=== PATIENT | female | born 1955 | race Caucasian/White ===

== ENCOUNTER → 2017-07-14 | Outpatient (CLI) | payer OTHER ==
[~2017-07-14] MED LIST: ASPI-1471 PO; ASPI-757 PO; CELE-1 PO; DIA5 PO; HYDR-2966 PO; HYDR-4308 PO; LEVO88TA45 PO; LOSA100T67 PO; MECL25TA9 PO; SIMV-54 PO; SPIR25TA78 PO
--- NOTE | 2017-07-14 17:04 | EKG ---
FACILITY: [facility] - [place], [place] PATIENT NAME: JUANA BARRON : [id number] MR: [id number] V: [id number] EXAM DATE: ORDERING PHYSICIAN: STEPHANIE PATE TECHNOLOGIST: Test Reason : Blood Pressure : / mmHG Vent. Rate : 077 BPM Atrial Rate : 077 BPM P-R Int : 144 ms QRS Dur : 092 ms QT Int : 390 ms P-R-T Axes : 031 -24 025 degrees QTc Int : 441 ms Normal sinus rhythm Normal ECG When compared with ECG of 24-SEP-2016 16:13, No significant change was found Confirmed by LEO NORMAN ([id number]) on 07/15/2017 2:00:23 AM Referred By: Confirmed By:LEO NORMAN
== END ==
LOC: LAB 16:44
PROVIDERS: ATTEND Obstetrics & Gynecology Gynecologic Oncology
DX: C54.1 Malignant neoplasm of endometrium (principal)
CPT/HCPCS: 36415; 82040; 82247; 82248; 82310; 82374; 82435; 82565; 82947; 84075; 84132; 84155; 84295; 84450; 84460; 84520; 85027; 93005

== ENCOUNTER 2017-08-27 00:43 | Day surgery (SDC) | payer OTHER ==
[~2017-08-27] VITALS: Ht 160 cm; Wt 102.5 kg
[~2017-08-27 00:43] MED LIST changes: +MECO10002 SL
[2017-08-27] MEDS ORDERED: LIDOCAINE/SOD BICARB 8.4% SYR ID ONE (11:45)
[2017-08-27] MEDS ORDERED: VANCOMYCIN 1 GM ADDVIAL 1 GM in NS(*) 0.9% 250 ML ADDVAN BAG 250 ML IVPB ONE (11:45)
[2017-08-27] MEDS ORDERED: FAMOTIDINE 20 MG TAB PO ONE (11:45)
[2017-08-27] MEDS ORDERED: NORMOSOL R SOLN(*) 1000 ML BAG 1,000 ML IV PRN (11:45)
[2017-08-27] MEDS ORDERED: MIDAZOLAM 2 MG/2 ML VIAL IVP ONE (11:45)
[2017-08-27 13:17] VITALS: BP 151/74
[2017-08-27] MEDS ORDERED: HEPARIN SOD LCK FLSH 100 UN/ML ONE ×2 (13:37→14:05)
[2017-08-27] MEDS ORDERED: ROPIVACAINE 0.5% 20 ML VIAL ONE (13:38)
[2017-08-27] MEDS ORDERED: NS(*) 0.9% 10 ML VIAL 20 ML ONE (13:38)
[2017-08-27] MEDS ORDERED: SUCCINYLCHOL CHL 200MG/10ML VL ONE (14:18)
[2017-08-27] MEDS ORDERED: LIDOCAINE MPF 1% 5 ML VIAL ONE (14:18)
[2017-08-27] MEDS ORDERED: PROPOFOL EMUL(*) 10MG/ML 20 ML 40 ML ONE (14:18)
[2017-08-27] MEDS ORDERED: ONDANSETRON 4 MG/2 ML VIAL ONE (14:18)
[2017-08-27] MEDS ORDERED: DEXAMETHASONE SOD PHOS 10MG/ML ONE (14:18)
[2017-08-27] MEDS ORDERED: OXYC-854 PO (15:31)
--- NOTE | 2017-08-27 15:34 | Short(Outpt) Discharge Summary ---
Discharge Summary Reason for Hosp/Final Diag: (1) Endometrial cancer, FIGO stage IIIC Status: Chronic Hospital Course & Plan: Right IJ Power Port placement completed without problems. Departure Discharge to: Home, Self Care Discharge Instructions Home Meds Active Scripts Oxycodone Hcl/Acet 5/325 Mg (ENDOCET 5-325 TABLET) 1 Each Tablet, 1 TAB PO Q4H Y for PAIN, #20 TAB 0 Refills Prov:ANAHY GENTILE MD 08/27/17 Reported Medications Mecobalamin (B-12) 1,000 Mcg Tab.rapdis, 1000 MCG SL DIRECTED 08/11/17 Spironolactone (SPIRONOLACTONE) 25 Mg Tablet, 25 MG PO DAILY, TAB 08/11/17 Aspirin (ASPIR 81) 81 Mg Tablet.dr, 81 MG PO QDAY, TAB 09/24/16 Losartan Potassium (LOSARTAN POTASSIUM) 100 Mg Tablet, 100 MG PO QDAY 07/08/16 Levothyroxine Sodium (LEVOTHYROXINE SODIUM) 88 Mcg Tablet, 88 MCG PO QDAY 07/08/16 Simvastatin (SIMVASTATIN) 40 Mg Tablet, 40 MG PO HS, TAB 07/08/16 Diet: Regular Activity: As Tolerated Special Instructions: You may leave the incisions open to air but leave the steristrips in place until they fall off on their own. You may start showering starting on 08/29/17, but do not immerse the incisions for 2 weeks. There is a dissolvable suture in your right neck. It SHOULD fall out in the next 2 weeks but if it doesn't try gently pulling on it. If it doesn't come out on its own or with gentle tugging then it can be removed in the cancer center or you can call my office and we can remove it there. ANAHY GENTILE MD Aug 27, 2017 15:34
--- NOTE | 2017-08-27 15:39 | Post Operative Progress Note ---
Post Operative Progress Note Date: Aug 27, 2017 Time: 15:34 Surgeon: Wanda Dictation number: [id number] Anesthesia: GETA by Dr. Valentin Pre-Op Diagnosis: Endometrial cancer Post-Op Diagnosis: FARZAD Findings: None Procedure(s): Right IJ Power Port placement Specimen Removed:(May be N/A): None Complications: None Fluids: See anesthesia record Estimated Blood Loss: Minimal Date OP Note Dictated: Aug 27, 2017 Time OP Note Dictated: 15:35 ANAHY GENTILE MD Aug 27, 2017 15:39
[2017-08-27 15:50] VITALS: BP 138/71
[2017-08-27 16:00] VITALS: BP 130/88
[2017-08-27 16:15] VITALS: BP 122/55
[2017-08-27 16:23] VITALS: BP 158/73
--- NOTE | 2017-08-27 17:29 | RADIOLOGY IMAGING REPORT ---
[place] [facility] [place] NAME: Didi Knowles : 1955 MR: [id number] V: [id number] EXAM DATE: ORDERING PHYSICIAN: ANAHY GENTILE TECHNOLOGIST: [place] [facility] [place] Patient: Didi Knowles : 1955 Visit/Account:[id number] Date of Sevice: 08/27/2017 Study: CHEST SINGLE AP Indication: Port placement Comparison study: August 26, 2017 Findings: Portable chest demonstrates presence of an implanted port within the right chest. There is no evidence of pneumothorax. The tip of the catheter overlies the SVC. There or changes of discoid atelectasis present within the right lung. This is worsened as compared t o the previous study, however the patient has not taken as full inspiration as on the previous study. There is no evidence of acute infiltrate. There is no evidence of pleural effusion. IMPRESSION: Status post port placement. Discoid atelectasis present within the left lung as described . Report Dictated By: Star Armijo at 08/27/2017 5:24 PM Report E-Signed By: Star Armijo at 08/27/2017 5:25 PM WSN:[id number]
--- NOTE | 2017-08-27 23:55 | RADIOLOGY IMAGING REPORT ---
[place] [facility] [place]: Didi Knowles : 1955 MR: [id number] V: [id number] EXAM DATE: ORDERING PHYSICIAN: ANAHY GENTILE TECHNOLOGIST: Location: [facility] Patient: Didi Knowles : 1955 Visit/Account:[id number] Date of Sevice: 08/27/2017 Fluoroscopy in OR: Indication: Chemotherapy port insertion. Technique 2 spot films were submitted. Fluoroscopy time was 35.8 seconds. Comparison: None. Findings: The spot images demonstrate a port catheter in the upper right chest wall. The tip of the c atheter is at the level of the SVC. An ET tube is also present. The upper right lung field appears un remarkable, as visualized. Impression: As above. Report Dictated By: Curt Castillo MD at 08/27/2017 11:49 PM Report E-Signed By: Curt Castillo MD at 08/27/2017 11:52 PM WSN:[id number]
[2017-08-28] MEDS ORDERED: LIDO30CR3 TP ×3 (09:22→10:12)
[2017-08-28] MEDS ORDERED: PROC10TA4 PO ×3 (09:22→10:12)
[2017-08-28] MEDS ORDERED: LORA-1455 PO ×2 (09:22→10:12)
[2017-08-28] MEDS ORDERED: ONDA4TAB PO ×3 (09:22→10:12)
[2017-08-28] MEDS ORDERED: OXYC-854 PO (10:10)
--- NOTE | 2017-08-28 14:55 | OPERATIVE REPORT 1 ---
EVENT DATE: August 27, 2017 SURGEON: Damir Muñoz MD ANESTHESIOLOGIST: Иван Valentin MD ANESTHESIA: General endotracheal anesthesia. PREOPERATIVE DIAGNOSIS Endometrial cancer. POSTOPERATIVE DIAGNOSIS Endometrial cancer. PROCEDURE PERFORMED Right internal jugular vein PowerPort placement. COMPLICATIONS None. CONDITION Stable. BLOOD LOSS Minimal. INDICATIONS This is a 61-year-old female who referred to me from the Cancer Center with a new diagnosis of endometrial cancer, for which they are wanting to start chemotherapy. They are requiring a chemotherapy port to facilitate this. DESCRIPTION OF PROCEDURE The patient was brought to the operating room and placed supine on the operating table. General endotracheal anesthesia was administered, and her right neck, shoulder, and chest were prepped and draped in a sterile fashion. Timeout was completed. With her in Trendelenburg, I used the ultrasound to identify the right internal jugular vein. I was able to access this with the access needle and thread the wire through the needle. I confirmed the position of the wire in the SVC with the C-arm fluoroscope. I then marked the skin and anesthetized the skin with 0.5% ropivacaine plain both in the neck and then in the right infraclavicular skin. I made a transverse incision in the infraclavicular skin and dissected through the dermis and subcutaneous fat. I created a pocket caudad to the incision. I made sure the pocket was hemostatic. I then made a small stab incision where the wire entered the right neck. I then used the tunneler and pulled the catheter from the pocket up to the stab incision in the neck. With the patient in Trendelenburg, I threaded a dilator and sheath over the wire and removed the dilator and wire. I then threaded the catheter through the sheath and removed the sheath. I then used the C-arm fluoroscope to position the tip of the catheter in the SVC just above the right atrium and then cut it to length. I installed it onto the port and locked into place with a locking cuff. I then sutured the port to the underlying muscle fascia with 3-0 nylon at the corners. I then aspirated blood from the port and catheter and then flushed it with 10 mL of normal saline. It aspirated and flushed with no problems. I then flushed it with 5 mL of 100 units/mL of heparinized saline. I then took some more C-arm images to confirm good position of the port and catheter and that there were no kinks or twists in the catheter, and there was none. It looked good. I then closed the skin in the infraclavicular area with interrupted 3-0 Vicryl deep dermal sutures and 4-0 Monocryl running subcuticular suture. The stab incision in the right neck was closed with a single 3-0 chromic suture. The skin was cleaned and dried, and Steri-Strips were applied. The patient was awakened, extubated in the operating room, and transported to the recovery room in stable condition having tolerated the procedure without any apparent problems. PEMA
== END 2017-08-27 15:50 | disposition home or self-care (01) ==
LOC: OR 00:43
PROVIDERS: ATTEND Surgery
DX: C54.1 Malignant neoplasm of endometrium (principal)
CPT/HCPCS: 36561; 71045; 77001; J0330; J1100; J1642; J2001; J2250; J2405; J2704; J2795; J3370; J7050; C1788

== ENCOUNTER → 2017-08-28 | Outpatient (CLI) | payer OTHER ==
[~2017-08-28] MED LIST changes: +LIDO30CR3 TP; +LORA-1455 PO; +ONDA4TAB PO; +OXYC-854 PO; +PEGFILGRASTIM 6 MG/0.6 ML KIT SUBQ ONE; +PROC10TA4 PO
== END ==
LOC: SPU 14:17
PROVIDERS: ATTEND Internal Medicine Medical Oncology
DX: C54.1 Malignant neoplasm of endometrium (principal)
CPT/HCPCS: 96372; J2505

== ENCOUNTER 2017-09-08 14:22 | Outpatient (RCR) | payer OTHER ==
--- NOTE | 2017-08-26 16:15 | RADIOLOGY IMAGING REPORT ---
FACILITY: [facility] PATIENT NAME: Didi Knowles : 1955 MR: [id number] V: [id number] EXAM DATE: ORDERING PHYSICIAN: KHUSHBOO JACQUES TECHNOLOGIST: Location: [facility] - [place] Patient: Didi Knowles : 1955 Visit/Account:[id number] Date of Sevice: 08/26/2017 Exam type: CHEST PA AND LAT History: Uterine cancer Comparison: 07/10/2006. Findings: There is elevation the right hemidiaphragm which is unchanged from prior exam. Minimal atelectasis a t the left lung base is noted similar to recent CT chest 09/24/2016. There is no focal infiltrate, pl eural effusion or pneumothorax. No evidence for pulmonary metastatic disease. Heart size is upper limits of normal. The osseous structures demonstrate a scoliosis with degenerative changes. IMPRESSION: 1. No evidence for acute cardiopulmonary disease. 2. Stable atelectasis or scarring at left lung base. 3. No evidence for metastatic disease to the chest. Report Dictated By: Ulysses Espinoza MD at 08/26/2017 4:08 PM Report E-Signed By: Ulysses Espinoza MD at 08/26/2017 4:10 PM WSN:[id number]
--- NOTE | 2017-08-26 16:57 | RADIOLOGY IMAGING REPORT ---
FACILITY: [facility] PATIENT NAME: Didi Knowles : 1955 MR: [id number] V: [id number] EXAM DATE: ORDERING PHYSICIAN: KHUSHBOO JACQUES TECHNOLOGIST: Location: [facility] - [place] Patient: Didi Knowles : 1955 Visit/Account:[id number] Date of Sevice: 08/26/2017 ABDOMEN/PELVIS W/O CONTRAST HISTORY: Staging uterine cancer TECHNIQUE: CT abdomen and pelvis without intravenous contrast. Contiguous axial images of the abdom en and pelvis was performed from the lung bases to the symphysis pubis. One of the following dose optimization techniques was utilized in the performance of this exam: Autom ated exposure control; adjustment of the mA and/or kV according to the patient's size; or use of an i terative reconstruction technique. Specific details can be referenced in the facility's radiology C T exam operational policy. CONTRAST: None. COMPARISON: None. FINDINGS: Visualized lung bases: There is elevation right hemidiaphragm which is chronic. Hepatobiliary: Negative. Spleen: Negative. Adrenals: Negative. Kidneys/: The uterus appears to be absent. There is no evidence for residual or metastatic diseas e in the abdomen and pelvis within the limits of a noncontrasted study. Bubble of air is noted in th e vaginal fornix. Pancreas: Negative. GI: There is colonic diverticulosis but no CT evidence for diverticulitis. The appendix is normal. Vessels/spaces/nodes: Minimal atherosclerotic calcifications noted. Bones/soft tissues: Negative. IMPRESSION: 1. Uterus is absent. There is no evidence for residual or metastatic disease in the abdomen and pel vis within the limits of a noncontrasted study. 2. Other chronic findings are described above. Report Dictated By: Ulysses Espinoza MD at 08/26/2017 4:42 PM Report E-Signed By: Ulysses Espinoza MD at 08/26/2017 4:53 PM WSN:[id number]
[~2017-09-08 14:22] MED LIST changes: -PEGFILGRASTIM 6 MG/0.6 ML KIT SUBQ ONE
[2017-09-08] MEDS ORDERED: DIPH-740 PO (16:56)
[2017-09-08] MEDS ORDERED: CETI-176 PO (16:56)
[2017-09-08] MEDS ORDERED: RANI150C17 PO (16:56)
[2017-09-08] MEDS ORDERED: PRED20TA6 PO (16:57)
== END 2017-09-16 11:25 | disposition home or self-care (01) ==
LOC: RAON 14:22
PROVIDERS: ATTEND Radiology Radiation Oncology
DX: C54.1 Malignant neoplasm of endometrium (principal); E78.00 Pure hypercholesterolemia, unspecified; I10 Essential (primary) hypertension; E07.9 Disorder of thyroid, unspecified; Z79.899 Other long term (current) drug therapy; K57.30 Diverticulosis of large intestine without perforation or abscess without bleeding; R91.8 Other nonspecific abnormal finding of lung field
CPT/HCPCS: 71046; 74176; 99202; 99212

== ENCOUNTER → 2017-09-18 | Outpatient (CLI) | payer OTHER ==
[~2017-09-18] MED LIST changes: +CETI-176 PO; +DIPH-740 PO; +PEGFILGRASTIM 6 MG/0.6 ML SYR SUBQ ONE; +PRED20TA6 PO; +RANI150C17 PO
== END ==
LOC: SPU 07:48
PROVIDERS: ATTEND Internal Medicine Medical Oncology
DX: C54.1 Malignant neoplasm of endometrium (principal)
CPT/HCPCS: 96372; J2505

== ENCOUNTER → 2017-10-09 | Outpatient (CLI) | payer OTHER ==
[~2017-10-09] MED LIST changes: +METF-410 PO
[2017-10-09 15:45] VITALS: BP 160/83
== END ==
LOC: SPU 09:06
PROVIDERS: ATTEND Internal Medicine Medical Oncology
DX: C54.1 Malignant neoplasm of endometrium (principal)
CPT/HCPCS: 96372; J2505

== ENCOUNTER → 2017-11-03 | Outpatient (CLI) | payer OTHER | LOC: SPU 07:32 | PROVIDERS: ATTEND Internal Medicine Medical Oncology | DX: C54.1 Malignant neoplasm of endometrium (principal) | CPT/HCPCS: 96372; J2505 ==

== ENCOUNTER → 2017-11-09 | Outpatient (RCR) | payer OTHER ==
[2017-08-12 09:54] VITALS: BP 154/86
--- NOTE | 2017-08-12 17:55 | ONCOLOGY CONSULTATION ---
EVENT DATE: August 12, 2017 REFERRING PROVIDER Angel Garcia MD, Obstetrics and Gynecology REASON FOR CONSULTATION Endometrial cancer. CHIEF COMPLAINT The patient feels well today. HISTORY OF PRESENT ILLNESS Ms. Knowles is a delightful 61-year-old female with a history of hypertension, hypercholesterolemia, and hypothyroidism. She recently presented with uterine bleeding. She was seen in consultation by Dr. Simpson at [facility] in [place]. She underwent robotic total hysterectomy, bilateral salpingo- oophorectomy and omentectomy with staging on July 21, 2017. The patient reports that this surgery went remarkably well. She feels that she has recovered nicely. She recently returned to work for a few days, and this went fairly well. She is here today with her loved ones. She recently also had met with Dr. Eason in Radiation Oncology. The pathology report from her recent surgery on July 21 reveals an endometrioid adenocarcinoma with squamous differentiation, grade 2, deeply invasive in the myometrium, and with lymphatic embolization. The cervix also contained endometrioid adenocarcinoma involving the cervical stroma. The left and right ovaries as well as left and right fallopian tubes were unremarkable. Pelvic sentinel lymph node on the right was negative. Pelvic sentinel lymph node on the left revealed metastatic carcinoma. It has been recommended that the patient consider adjuvant chemotherapy and radiation. Again, she has visited with Dr. Eason to discuss radiation plans, and she is here to discuss chemotherapy with me today. REVIEW OF SYSTEMS Otherwise negative, and all systems were reviewed. PAST MEDICAL HISTORY 1. Hypertension. 2. Hypercholesterolemia. 3. Hypothyroidism. PAST SURGICAL HISTORY 1. As above. 2. Status post a surgical procedure on her hand. 3. Status post tonsillectomy. 4. Status post knee surgery last year. CURRENT MEDICATIONS 1. Baby aspirin once daily. 2. Vitamin B12 daily. 3. Levothyroxine daily. 4. Losartan daily. 5. Simvastatin daily. 6. Spironolactone daily. ALLERGIES 1. CELEBREX which causes a rash. 2. PENICILLINS which cause hives. SOCIAL HISTORY Patient is a nonsmoker, and there is no history of illicit drug use or alcohol abuse. 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 FAMILY HISTORY Otherwise unremarkable. VITAL SIGNS Temperature is 97.5, blood pressure 154/86, heart rate is 88, respirations 16, oxygen saturation is 90% on room air. Weight is 104.1 kg. PHYSICAL EXAMINATION GENERAL: Patient is alert and oriented times three in no apparent distress, sitting in the exam room chair. She is interactive and quite pleasant and in good spirits. HEENT: Exam reveals anicteric sclerae. No significant oropharyngeal lesions. NEUROLOGIC: Examination is nonfocal and her gait is normal. EXTREMITIES: Exam reveals no edema, clubbing or cyanosis. SKIN: Exam reveals no concerning rash or lesion. The rest of the physical exam is deferred for extensive discussion. LABORATORY STUDIES Reviewed per the [facility] record. IMAGING AND PATHOLOGY Please see history of present illness. ASSESSMENT AND PLAN 1. 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 I had a lengthy visit with Gricelda and her visitors today. Symptomatically, she is doing remarkably well. We spent time today reviewing her oncology history, which is noted above. Her performance status is excellent. We moved on to discuss the results of her surgical pathology. She has seen Dr. Eason in consultation, and I have reviewed her situation with Dr. Eason this morning. She is going to travel to [place] to have a CT PET scan performed. We will await these results. The tentative plan moving forward will be for her to receive six cycles of adjuvant carboplatin and paclitaxel. We spent a great deal of time today discussing the characteristics of these medicines, the toxicity of the regimen itself, and particular risks. We also discussed the rational for its use. After her six cycles of carboplatin and paclitaxel, the plan will be for her to undergo external beam radiation, likely with weekly low dose cisplatin. We also discussed cisplatin in detail. It is likely that the patient would also undergo subsequent vaginal brachytherapy in [place] with Dr. Eason. The patient does seem to be quite well informed at this time, and she has a tremendous social support network. We spent some time discussing how her work could potentially impacted by our treatment plan. She will be scheduled for a port placement with Dr. Muñoz here in [place], and we will be back in touch with her after her CT PET scan to review the results. She will be scheduled for a chemotherapy education session. I will also enter a referral for physical therapy, which will be particularly important for her as she initiates adjuvant treatment. The patient and her loved ones had multiple insightful and appropriate questions for me today, and I believe I answered all of these questions to their satisfaction. I will plan to see her back in the next month here in my [facility] clinic. Thank you very much for allowing me to take part in the care of this delightful patient. Please do not hesitate to call with any questions or concerns. I spent a total of 60 minutes of [id number] time with the patient and her visitors today. Fifty-five minutes of this was spent in direct counseling and coordination of care. PEMA
[2017-08-28 08:20] LABS: PLATELET COUNT, AUTOMATED 199 K/uL (150-450)
--- NOTE | 2017-08-28 09:24 | ONC Progress Note - NP.Halsey ---
Patient History Date of Service Aug 28, 2017 Reason For Visit/HPI Patient is seen with her family today for education with chemotherapy for her endometrial cancer. Patient has consult it with Dr. Marshall Lange and Krysta Eason in the [facility] and previously was seen by Angel Garcia MD, Obstetrics and Gynecology for management of care. Patient had a port placed yesterday and denies any pain or swelling over the area. Port was accessed without difficulty area patient will start paclitaxel and carboplatin cycle 1 today. Questions were answered and a consent was signed. Problem List (1) Endometrial cancer, FIGO stage IIIC Oncology History 1. 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 Plan of care includes lesion of six cycles of adjuvant carboplatin and paclitaxel. This will be followed by external beam radiation therapy with weekly low dose cisplatin. It is likely that the patient would also undergo subsequent vaginal brachytherapy in [place] with Dr. Eason. Medical History Family History: FH: diabetes mellitus FATHER BROTHER OR SISTER FH: heart disease FATHER BROTHER OR SISTER Psychosocial History Social History Patient is single. 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 Smoking History: No Smoking Status: Never Smoker Exposure to Second Hand Smoke?: No Medications and Allergies Active Scripts Lidocaine/Prilocaine (LIDOCAINE-PRILOCAINE CREAM) 30 Gm Cream..g., 30 GM TP PRN , #1 G 1 Refill Prov:DOMINGO VARGASP-BC, ONC 08/28/17 Prochlorperazine Maleate (Compazine) 10 Mg Tablet, 10 MG PO Q6H, #30 TAB Prov:DOMINGO VARGASP-BC, ONC 08/28/17 Ondansetron (ZOFRAN ODT) 4 Mg Tab.rapdis, 8 MG PO Q8H, #30 TAB.SUMMER 1 Refill Prov:DOMINGO VARGASP-BC, ONC 08/28/17 Oxycodone Hcl/Acet 5/325 Mg (ENDOCET 5-325 TABLET) 1 Each Tablet, 1 TAB PO Q4H Y for PAIN, #20 TAB 0 Refills Prov:ANAHY GENTILE MD 08/27/17 Reported Medications Mecobalamin (B-12) 1,000 Mcg Tab.rapdis, 1000 MCG SL DIRECTED 08/11/17 Spironolactone (SPIRONOLACTONE) 25 Mg Tablet, 25 MG PO DAILY, TAB 08/11/17 Aspirin (ASPIR 81) 81 Mg Tablet.dr, 81 MG PO QDAY, TAB 09/24/16 Losartan Potassium (LOSARTAN POTASSIUM) 100 Mg Tablet, 100 MG PO QDAY 07/08/16 Levothyroxine Sodium (LEVOTHYROXINE SODIUM) 88 Mcg Tablet, 88 MCG PO QDAY 07/08/16 Simvastatin (SIMVASTATIN) 40 Mg Tablet, 40 MG PO HS, TAB 07/08/16 Allergies: Coded Allergies: Penicillins (Verified Allergy, Intermediate, HIVES, 07/08/16) celecoxib (Verified Allergy, Unknown, HIVES, 09/24/16) Review of System/Physical Exam Review of Systems All Systems Reviewed/Normal: Yes Physical Exam Vital Signs Temperature: 97.5 Pulse: 88 BP Systolic: 154 BP Diastolic: 86 Respiratory Rate: 16 O2 SAT: 90 O2 Delivery: Height (inches) 63.00 Weight lb: 227 Weight oz: Weight Kg (Bebo): Pain: 0 ECOG Score: 0 General: Stable, Well Developed, Well Nourished, Not In Acute Distress Psychiatric: Mood appears normal, Affect appears normal, Other (good support system) Chemo Education Chemotherapy Education: Patient is seen today for education regarding chemotherapy with paclitaxel and carboplatin followed by [facility] for her endometrial cancer. The treatment schedule and associated appointments were discussed and reviewed. A print out will be given to the patient. The intent for treatment is curative . Consent for treatment was completed prior to receiving treatment. Mechanism of action and associated side effects of chemotherapy and premedications were discussed. The patient is at increased risk for infection related to bone marrow suppression with chemotherapy. Signs and symptoms of infection were reviewed with recommendation of calling the clinic if fever, chills or a temperature of 100.5 or greater is experienced. Regular monitoring of blood work will be completed. The patient is at increased risk of nausea and vomiting related to chemotherapy. Home antiemetics were reviewed with a schedule of when to take them. Script (s) for Ativan, Zofran, Compazine, and EMLA cream were sent to [facility]. Increased bowel movements or diarrhea may occur. The use of Imodium was reviewed and encouraged to have on hand. Dehydration from decreased intake, nausea or diarrhea could also occur. Side effects of dehydration were reviewed and hydration will be given as needed. Self-care strategies to minimize any symptoms from treatment were taught and written material was given for further review at home. The strategies included : dietary modifications for nausea, diarrhea, fatigue and/or mouth sores, exercise and resting for fatigue, hydration for dehydration, and skin care for dry skin reactions. In addition, safety measures for IV chemotherapy to prevent teratogenic side effects to others was reviewed in detail to include good hand washing, double flushing, and what to do during sexual intercourse. Patient reports that she is not sexually active. The hospital phone number was given to the patient with instructions to ask for nurse practitioner if she has questions after hours or on the weekend. We did touch base on dietary and physical therapy needs. Patient will see the dietitian and physical therapist. In addition we reviewed a little bit of information regarding weekly cisplatin and daily radiation therapy which will be completed in the future followed by brachii therapy completed in [place] with Dr. Eason The above information will be reviewed with the patient and family members as needed. Diagnostic Studies Diagnostic Studies Laboratory Item Value Date Time White Blood Count 12.3 k/uL H 08/28/17 0810 Neutrophils (%) (Auto) 90.9 % H 08/28/17 0810 Lymphocytes (%) (Auto) 5.8 % L 08/28/17 0810 Monocytes (%) (Auto) 2.9 % L 08/28/17 0810 Eosinophils (%) (Auto) 0.0 % L 08/28/17 0810 Neutrophils # (Auto) 11.2 K/uL H 08/28/17 0810 Lymphocytes # (Auto) 0.7 K/uL L 08/28/17 0810 Random Glucose 143 mg/dl H 08/28/17 0810 Assessment and Plan Assessment & Plan 1. 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 Patient was scheduled to have a PET CT scan and follow with Dr. Eason, unfortunately her insurance denied this study. Patient will have a CT scan only. Education regarding paclitaxel and carboplatin was completed today. Consent was signed. Patient and family members verbalized understanding and felt that questions were answered to their satisfaction. [facility] include Ativan, Zofran, Compazine, and EMLA cream. Patient will complete 6 cycles given every 21 days followed by weekly cisplatin with concurrent therapy with radiation. This is likely to be followed by brachytherapy completed in [place]. 2. Elevated white cell count of 12.3 today. I will obtain a urine sample. Treatment will be completed today as scheduled as patient denies any fever or chills, body aches, cough or shortness of breath or any other sign of infection. She will be treated appropriately if there is an indication. I personally spent a total of 40 minutes. Of that 40 minutes was counseling/ coordination of patient's care. See my note above for details. DOMINGO VARGAS PROJECTS MANAGER-BC, ONC Aug 28, 2017 09:24
[2017-08-28 09:43] VITALS: BP 147/68
[2017-08-28] MEDS: diphenhydrAMINE 50 MG/ML VIAL IVP PRN (10:02)
[2017-08-28] MEDS: FAMOTIDINE 10 MG/ML SDV IV PRN (10:06)
[2017-08-28] MEDS: PALONOSETRON 0.25 MG/5 ML VIAL IVP PRN (10:09)
[2017-08-28] MEDS: DEXAMETHASONE SOD PHOS 10MG/ML IVP PRN (10:09)
[2017-08-28] MEDS: LIDOCAINE/SOD BICARB 8.4% SYR ID PRN (10:37)
[2017-08-28 11:11] VITALS: BP 123/72
[2017-08-28 11:18] VITALS: BP 126/65
[2017-08-28 11:46] VITALS: BP 128/69
[2017-08-28 12:52] VITALS: BP 108/48
[2017-09-04 08:58] VITALS: BP 119/60
[2017-09-04] MEDS: HEPARIN FLSH (PORT) 500 UN/5ML IVP PRN (09:15)
[2017-09-04 09:17] LABS: PLATELET COUNT, AUTOMATED 86 K/uL (150-450)
[2017-09-04] MEDS: NS(*) 0.9% 1000 ML BAG 1,000 ML IV PRN ×2 (14:00→15:00)
[2017-09-04] MEDS: FAMOTIDINE 10 MG/ML SDV IV PRN (14:00)
[2017-09-05 09:23] VITALS: BP 158/61
[2017-09-05] MEDS: NS(*) 0.9% 1000 ML BAG 1,000 ML IV PRN (09:25)
[2017-09-05] MEDS: HEPARIN FLSH (PORT) 500 UN/5ML IVP PRN (09:25)
[2017-09-07 08:28] VITALS: BP 147/90
[2017-09-07 08:51] LABS: PLATELET COUNT, AUTOMATED 104 K/uL (150-450)
--- NOTE | 2017-09-07 09:00 | ONC Progress Note - NP.Halsey ---
Patient History Date of Service Sep 07, 2017 Reason For Visit/HPI Patient is seen in the clinic today for evaluation of a rash that she developed on Thursday. Patient called the on-call nurse practitioner and was instructed to take Benadryl, Zyrtec, ranitidine and was started on prednisone 20 mg twice daily 5 days. Patient reports that the rash did not itch and she was not aware of it until seen herself in the near. He diffusely's scattered macule rash with erythema is over her entire body except for hands and face and feet. She denies any mouth sores, no ulcerations around the eyes, no fever or chills, no cough or congestion. She reports that the above medications have helped with symptom management because occasionally she does have some mild itching. She denies any changes in soap products and has not eaten any new foods. Patient did develop a slight reaction post initiation of paclitaxel on the day of infusion which required the drug to be stopped and then restarted slowly. Patient then had no further symptoms. The only symptom she had suggesting a reaction was flushing of the face and feeling warm. She was able to complete carboplatin without difficulty. Patient had labs drawn last Thursday and had an absolute neutrophil count around 100. She denied any fever or chills or any symptoms suggestive of an infection. She did have Neulasta. She is redrawn today for further evaluation. Problem List (1) Macular erythematous rash (2) Endometrial cancer, FIGO stage IIIC Oncology History 1. 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 Plan of care includes six cycles of adjuvant carboplatin and paclitaxel. This will be followed by external beam radiation therapy with weekly low dose cisplatin. It is likely that the patient would also undergo subsequent vaginal brachytherapy in [place] with Dr. Eason. Cycle 1 completed on 08/28/2017. Patient had flushing of the face during infusion with paclitaxel. 10 days posttreatment patient has erythematous rash. She developed significant neutropenia despite use of Neulasta. Medical History Family History: FH: diabetes mellitus FATHER BROTHER OR SISTER FH: heart disease FATHER BROTHER OR SISTER Psychosocial History Social History Patient is single. 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 Smoking History: No Smoking Status: Never Smoker Exposure to Second Hand Smoke?: No Medications and Allergies Active Scripts Lorazepam (ATIVAN) 0.5 Mg Tablet, 0.5 MG PO Q4-6H Y for NAUSEA for 30 Days, #30 TAB 1 Refill Prov:DOMINGO VARGAS [facility], ONC 08/28/17 Lidocaine/Prilocaine (LIDOCAINE-PRILOCAINE CREAM) 30 Gm Cream..g., 30 GM TP PRN , #1 G 1 Refill Prov:DOMINGO VARGAS [facility], ONC 08/28/17 Prochlorperazine Maleate (Compazine) 10 Mg Tablet, 10 MG PO Q6H, #30 TAB Prov:DOMINOG VARGAS [facility], ONC 08/28/17 Ondansetron (ZOFRAN ODT) 4 Mg Tab.rapdis, 8 MG PO Q8H, #30 TAB.SUMMER 1 Refill Prov:DOMINGO VARGAS [facility]-, ONC 08/28/17 Reported Medications Mecobalamin (B-12) 1,000 Mcg Tab.rapdis, 1000 MCG SL DIRECTED 08/11/17 Spironolactone (SPIRONOLACTONE) 25 Mg Tablet, 25 MG PO DAILY, TAB 08/11/17 Aspirin (ASPIR 81) 81 Mg Tablet.dr, 81 MG PO QDAY, TAB 09/24/16 Losartan Potassium (LOSARTAN POTASSIUM) 100 Mg Tablet, 100 MG PO QDAY 07/08/16 Levothyroxine Sodium (LEVOTHYROXINE SODIUM) 88 Mcg Tablet, 88 MCG PO QDAY 07/08/16 Simvastatin (SIMVASTATIN) 40 Mg Tablet, 40 MG PO HS, TAB 07/08/16 Allergies: Coded Allergies: Penicillins (Verified Allergy, Intermediate, HIVES, 07/08/16) celecoxib (Verified Allergy, Unknown, HIVES, 09/24/16) Review of System/Physical Exam Review of Systems All Systems Reviewed/Normal: Yes, Except as Noted Skin: Positive for Skin Rash (diffusely scattered rash over her entire body without evidence of mouth sores or rash on her face or hands or feet.) Physical Exam Vital Signs Temperature: 97.1 Pulse: 74 BP Systolic: 147 BP Diastolic: 90 Respiratory Rate: 16 O2 SAT: 90 O2 Delivery: Height (inches) 63.00 Weight lb: 226 Weight oz: Weight Kg (Bebo): Pain: 0 ECOG Score: 0 General: Stable, Well Developed, Well Nourished, Not In Acute Distress HEENT: No Trauma, No Conjunctivitis, No Icterus, No Mucositis, No Oral Thrush, No Sinus Tenderness Neck: Supple Lungs: Clear to Auscultation Heart: Regular Rate, Regular Rhythm, No Gallops Abdomen: Other (bowel sounds are active) Extremities: No Cyanosis, No Clubbing, No Edema Psychiatric: Mood appears normal, Affect appears normal Skin: Skin Rashes (diffusely scattered macule erythematous rash over entire body with the exception of head, hands and feet.) Diagnostic Studies Diagnostic Studies Laboratory Item Value Date Time White Blood Count 8.5 k/uL 09/07/17843 Hemoglobin 14.0 g/dL 09/07/17843 Hematocrit 40.9 % 09/07/17843 Platelet Count 104 K/uL L 09/07/17843 Neutrophils # (Auto) 7.1 K/uL 09/07/17843 Eosinophils (%) (Auto) 0.2 % L 09/07/17843 Lymphocytes # (Auto) 0.9 K/uL L 09/07/17843 Item Value Date Time Sodium Level 132 mmol/L L 09/07/17843 Chloride Level 97 mmol/L L 09/07/17843 Random Glucose 185 mg/dl H 09/07/17843 Blood Urea Nitrogen 17 mg/dl 09/07/17843 Creatinine 0.90 mg/dl 09/07/17843 Laboratory Tests 09/04/17 08:57 Laboratory Tests 08/28/17 09:28: Urine Color Yellow, Urine Clarity Slightly-cloudy, Urine pH 6.0, Urine Specific [place] 1.025, Urine Protein Negative, Urine Glucose (UA) Negative, Urine Ketones Negative, Urine Blood Negative, Urine Nitrite Negative, Urine Bilirubin Negative, Urine Urobilinogen Negative, Urine Leukocyte Esterase Negative, Urine RBC None, Urine WBC 2, Urine Squamous Epithelial Cells Many, Urine Bacteria Negative, Urine Mucus Few 09/04/17 08:57: White Blood Count 1.0, Red Blood Count 4.23, Hemoglobin 14.0, Hematocrit 40.4, Mean Corpuscular Volume 95.5, Mean Corpuscular Hemoglobin 33.0, Mean Corpuscular Hemoglobin Concent 34.5, Red Cell Distribution Width 12.9, Platelet Count 86, Mean Platelet Volume 10.3, Neutrophils (%) (Auto) , Lymphocytes (%) ( Auto) , Monocytes (%) (Auto) , Eosinophils (%) (Auto) , Basophils (%) (Auto) , Nucleated RBC Relative Count (auto) , Neutrophils # (Auto) , Lymphocytes # (Auto ) , Monocytes # (Auto) , Eosinophils # (Auto) , Basophils # (Auto) , Nucleated RBC Absolute Count (auto) , Neutrophils % (Manual) 15, Lymphocytes % (Manual) 63 , Atypical Lymphocytes % 11, Monocytes % (Manual) 3, Eosinophils % (Manual) 8, Basophils % (Manual) 0, Peripheral Blood Smear Yes, Sodium Level 132, Potassium Level 3.7, Chloride Level 94, Carbon Dioxide Level 25, Blood Urea Nitrogen 33, Creatinine 1.50, Glomerular Filtration Rate Calc 35.5, Random Glucose 145, Calcium Level 8.9, Total Bilirubin 0.8, Aspartate Amino Transf (AST/SGOT) 20, Alanine Aminotransferase (ALT/SGPT) 38, Alkaline Phosphatase 70, Total Protein 6.8, Albumin 3.9 Assessment and Plan Assessment & Plan 1. 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 Patient was scheduled to have a PET CT scan and follow with Dr. Eason, unfortunately her insurance denied this study. Patient will have a CT scan only. Education regarding paclitaxel and carboplatin was completed prior treatment. Consent was signed. She developed a slight reaction with paclitaxel infusion to include flushing of the face and warmth of the face. The infusion was held for 30 minutes and then restarted at a lower rate. Patient was able to complete without difficulty. Today patient reports approximately 10 days post infusion a diffusely Scattered erythematous macular rash with mild itching. Patient is currently on Benadryl, Zyrtec, ranitidine and prednisone 20 mg twice a day 5 days. Patient reports symptoms are improved with only mild itching. She was started on medications through the on-call nurse practitioner. Information will be reviewed with pharmacy. Patient has completed 1 cycle out of 6 cycles given every 21 days. This will be followed by weekly cisplatin with concurrent therapy with radiation. This is likely to be followed by brachytherapy completed in [place]. 2. Elevated white cell count of 12.3 on day 1 of treatment. Urine sample was unremarkable. Treatment was completed as scheduled as patient denied any fever or chills, body aches, cough or shortness of breath or any other sign of infection. 3. Diffusely scattered erythematous macular rash. Symptoms started 10 days posttreatment. Patient was started on Benadryl, Zyrtec, ranitidine and prednisone. We will continue to monitor. 4. Thrombocytopenia. Platelets were 86,000 drawn 7 days posttreatment. Lately count is 104,000. 5. Neutropenia. ANC was below 107 days posttreatment. Patient did have Neulasta. CBC is redrawn today. ANC is currently at 7100. 6. Elevated creatinine and BUN. Patient was hydrated with 2 L on 09/04/2017 and 2 L over the weekend. Chemistry panel is redrawn today. This has recovered today and creatinine is 0.9 I personally spent a total of 20 minutes. Of that 15 minutes was counseling/ coordination of patient's care. See my note above for details. DOMINGO VARGAS PETROGRAPHY TEACHER-BC, ONC Sep 07, 2017 09:00
[2017-09-11 09:50] VITALS: BP 146/69
[2017-09-11] MEDS: LIDOCAINE/SOD BICARB 8.4% SYR ID PRN (09:53)
[2017-09-11] MEDS: HEPARIN FLSH (PORT) 500 UN/5ML IVP PRN (09:55)
[2017-09-11 09:59] LABS: PLATELET COUNT, AUTOMATED 104 K/uL (150-450)
[2017-09-17 09:04] VITALS: BP 151/78
[2017-09-17] MEDS: DEXAMETHASONE SOD PHOS 10MG/ML IVP PRN (10:24)
[2017-09-17] MEDS: diphenhydrAMINE 50 MG/ML VIAL IVP PRN (10:24)
[2017-09-17] MEDS: FAMOTIDINE 10 MG/ML SDV IV PRN (10:24)
[2017-09-17] MEDS: PALONOSETRON 0.25 MG/5 ML VIAL IVP PRN (10:25)
--- NOTE | 2017-09-17 10:58 | ONC Progress Note - NP.Halsey ---
Patient History Date of Service Sep 17, 2017 Reason For Visit/HPI Patient is seen in the clinic today prior to cycle 2 treatment with carboplatin and Taxol for her endometrial cancer. Patient developed a rash 10 days post her 1st treatment and was started on Benadryl, Zyrtec, ranitidine and prednisone 20 mg twice daily 5 days. Patient reports that the rash is completely resolved. She had one episode of nausea with clear emesis posttreatment and some mild constipation 2 days with resolution. She has mild neuropathy in her fingers but denies any sensation changes in her feet. She has been able to work and take the dog out for a walk without difficulty. No concerns today. Oncology History 1. 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 Plan of care includes six cycles of adjuvant carboplatin and paclitaxel. This will be followed by external beam radiation therapy with weekly low dose cisplatin. It is likely that the patient would also undergo subsequent vaginal brachytherapy in [place] with Dr. Eason. Cycle 1 completed on 08/28/2017. Patient had flushing of the face during infusion with paclitaxel. 10 days posttreatment patient has erythematous rash. She developed significant neutropenia despite use of Neulasta. Medical History Family History: FH: diabetes mellitus FATHER BROTHER OR SISTER FH: heart disease FATHER BROTHER OR SISTER Psychosocial History Social History Patient is single. 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 Smoking History: No Smoking Status: Never Smoker Exposure to Second Hand Smoke?: No Medications and Allergies Active Scripts Lorazepam (ATIVAN) 0.5 Mg Tablet, 0.5 MG PO Q4-6H Y for NAUSEA for 30 Days, #30 TAB 1 Refill Prov:DOMINGO VARGAS-[facility], ONC 08/28/17 Lidocaine/Prilocaine (LIDOCAINE-PRILOCAINE CREAM) 30 Gm Cream..g., 30 GM TP PRN , #1 G 1 Refill Prov:DOMINGO VARGAS, ONC 08/28/17 Prochlorperazine Maleate (Compazine) 10 Mg Tablet, 10 MG PO Q6H, #30 TAB Prov:DOMINGO VARGAS, ONC 08/28/17 Ondansetron (ZOFRAN ODT) 4 Mg Tab.rapdis, 8 MG PO Q8H, #30 TAB.SUMMER 1 Refill Prov:DOMINGO VARGAS-BOBBY, ONC 08/28/17 Reported Medications Cetirizine Hcl (ZYRTEC) 10 Mg Tablet, 10 MG PO QDAY, TAB 09/08/17 Diphenhydramine Hcl (BENADRYL) 25 Mg Capsule, 50 MG PO BID, CAPSULE 09/08/17 Ranitidine Hcl (RANITIDINE HCL) 150 Mg Capsule, 150 MG PO BID, CAPSULE 09/08/17 Mecobalamin (B-12) 1,000 Mcg Tab.rapdis, 1000 MCG SL DIRECTED 08/11/17 Spironolactone (SPIRONOLACTONE) 25 Mg Tablet, 25 MG PO DAILY, TAB 08/11/17 Aspirin (ASPIR 81) 81 Mg Tablet.dr, 81 MG PO QDAY, TAB 09/24/16 Losartan Potassium (LOSARTAN POTASSIUM) 100 Mg Tablet, 100 MG PO QDAY 07/08/16 Levothyroxine Sodium (LEVOTHYROXINE SODIUM) 88 Mcg Tablet, 88 MCG PO QDAY 07/08/16 Simvastatin (SIMVASTATIN) 40 Mg Tablet, 40 MG PO HS, TAB 07/08/16 Discontinued Reported Medications Prednisone (PREDNISONE) 20 Mg Tablet, 20 MG PO BID for 5 Days, TAB 09/08/17 Allergies: Coded Allergies: Penicillins (Verified Allergy, Intermediate, HIVES, 07/08/16) celecoxib (Verified Allergy, Unknown, HIVES, 09/24/16) Review of System/Physical Exam Review of Systems All Systems Reviewed/Normal: Yes, Except as Noted Gastrointestinal: Nausea (see above ), Constipation Hematologic: Positive for Fatigue Physical Exam Vital Signs Temperature: 97.6 Pulse: 79 BP Systolic: 151 BP Diastolic: 78 Respiratory Rate: 16 O2 SAT: 91 O2 Delivery: Height (inches) 63.00 Weight lb: 226 Weight oz: Weight Kg (Bebo): Pain: 0 ECOG Score: 0 General: Stable, Well Developed, Well Nourished, Not In Acute Distress HEENT: No Trauma, No Conjunctivitis, No Icterus, No Mucositis, No Oral Thrush Neck: Supple Lungs: Clear to Auscultation Heart: Regular Rate, Regular Rhythm, No Gallops Abdomen: Soft and Nontender, No Hepatosplenomegaly, No Masses, Other (bowel sounds are active) Extremities: No Cyanosis, No Clubbing, No Edema Lymphadenopathy: No Cervical, No Subclavicular Psychiatric: Mood appears normal Skin: No Skin Rashes, No Bruising, No Purpura Diagnostic Studies Diagnostic Studies Laboratory Laboratory Tests 09/17/17 09:27 Laboratory Tests 08/28/17 09:28: Urine Color Yellow, Urine Clarity Slightly-cloudy, Urine pH 6.0, Urine Specific [place] 1.025, Urine Protein Negative, Urine Glucose (UA) Negative, Urine Ketones Negative, Urine Blood Negative, Urine Nitrite Negative, Urine Bilirubin Negative, Urine Urobilinogen Negative, Urine Leukocyte Esterase Negative, Urine RBC None, Urine WBC 2, Urine Squamous Epithelial Cells Many, Urine Bacteria Negative, Urine Mucus Few 09/04/17 08:57: Neutrophils % (Manual) 15, Lymphocytes % (Manual) 63, Atypical Lymphocytes % 11 , Monocytes % (Manual) 3, Eosinophils % (Manual) 8, Basophils % (Manual) 0 09/11/17 09:50: Red Blood Count 4.25, Mean Corpuscular Volume 96.7, Mean Corpuscular Hemoglobin 32.7, Mean Corpuscular Hemoglobin Concent 33.8, Red Cell Distribution Width 13.1 , Mean Platelet Volume 8.5, Monocytes (%) (Auto) 7.2, Eosinophils (%) (Auto) 0.1 , Basophils (%) (Auto) 2.0, Nucleated RBC Relative Count (auto) 0.0, Monocytes # (Auto) 0.7, Eosinophils # (Auto) 0.0, Basophils # (Auto) 0.2, Nucleated RBC Absolute Count (auto) 0.00, Peripheral Blood Smear Yes 09/17/17 09:27: White Blood Count 5.2, Hemoglobin 13.5, Hematocrit 38.7, Platelet Count 149, Neutrophils (%) (Auto) 57.5, Lymphocytes (%) (Auto) 31.1, Neutrophils # (Auto) 3.0, Lymphocytes # (Auto) 1.6, Sodium Level 134, Potassium Level 3.7, Chloride Level 99, Carbon Dioxide Level 25, Blood Urea Nitrogen 23, Creatinine 0.80, Glomerular Filtration Rate Calc > 60.0, Random Glucose 148, Calcium Level 9.0, Total Bilirubin 0.6, Aspartate Amino Transf (AST/SGOT) 20, Alanine Aminotransferase (ALT/SGPT) 44, Alkaline Phosphatase 64, Total Protein 6.5, Albumin 3.7 Assessment and Plan Assessment & Plan 1. 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 Patient was scheduled to have a PET CT scan and follow with Dr. Eason, unfortunately her insurance denied this study. Patient will have a CT scan only. Education regarding paclitaxel and carboplatin was completed prior treatment. Consent was signed. She developed a slight reaction with paclitaxel infusion to include flushing of the face and warmth of the face. The infusion was held for 30 minutes and then restarted at a lower rate. Patient was able to complete without difficulty. Today patient reports approximately 10 days post infusion a diffusely Scattered erythematous macular rash with mild itching. Patient is currently on Benadryl, Zyrtec, ranitidine and prednisone 20 mg twice a day 5 days. Symptoms are completely resolved on exam today. Patient is scheduled for cycle 2 out of 6 cycles given every 21 days today.. This will be followed by weekly cisplatin with concurrent therapy with radiation. This is likely to be followed by brachytherapy completed in [place]. 2. Elevated white cell count of 12.3 on day 1 of treatment. Urine sample was unremarkable. Treatment was completed as scheduled as patient denied any fever or chills, body aches, cough or shortness of breath or any other sign of infection. White count is within normal limits today 3. Diffusely scattered erythematous macular rash. Symptoms started 10 days posttreatment. Patient was started on Benadryl, Zyrtec, ranitidine and prednisone. This is resolved. I did spend time discussing with patient that if it recurs we would restart her on prednisone. Patient will take Zyrtec and ranitidine daily. 4. Thrombocytopenia. Stable today. 5. Neutropenia. Patient will receive Neulasta subcutaneous injection 120 mg tomorrow in the clinic per patient preference instead of using on body injector. 6. Elevated creatinine and BUN. She may require hydration post treatment. I personally spent a total of 20 minutes. Of that 20 minutes was counseling/ coordination of patient's care. See my note above for details. DOMINGO VARGAS CHIEF OF POLICE-BC, ONC Sep 17, 2017 10:58
[2017-09-17] MEDS: FOSAPREPITANT DIM 150 MG/5 ML 150 MG in NS(*) 0.9% 250 ML BAG 245 ML IVPB PRN (11:03)
[2017-09-17] MEDS: HEPARIN FLSH (PORT) 500 UN/5ML IVP PRN (16:46)
[2017-09-24 09:04] VITALS: BP 142/66
[2017-09-24 09:36] LABS: PLATELET COUNT, AUTOMATED 109 K/uL (150-450)
[2017-09-30 09:09] VITALS: BP 159/92
[2017-09-30 09:32] LABS: PLATELET COUNT, AUTOMATED 102 K/uL (150-450)
--- NOTE | 2017-09-30 18:50 | ONCOLOGY FOLLOW UP NOTE ---
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 CHIEF COMPLAINT Fatigue. HISTORY OF PRESENT ILLNESS Ms. Knowles is here with her loved ones today. She has now completed two cycles of adjuvant carboplatin and paclitaxel. She did have flushing and a rash during her first chemotherapy infusion. This was treated appropriately, and with additional premedications for her second cycle, this did not happen again. Today, she reports that chemotherapy in general has been pretty rough, but she feels that she is tolerating it okay. Her appetite has been less than usual. She reports some nausea, but she has been controlling it fairly well at home. She has had no changes in her bowel habits. She thinks her appetite is okay, but her visitors today would disagree somewhat. She does think that she is staying hydrated. She reports no skin rash today. She denies abdominal pain. She has had no shortness of breath, chest pain, or cough. She is preparing to receive her third cycle of carboplatin and paclitaxel. REVIEW OF SYSTEMS Otherwise negative, and all systems were reviewed. PAST MEDICAL HISTORY 1. Hypertension. 2. Hypercholesterolemia. 3. Hypothyroidism. PAST SURGICAL HISTORY 1. As above. 2. Status post a surgical procedure on her hand. 3. Status post tonsillectomy. 4. Status post knee surgery last year. CURRENT MEDICATIONS 1. Baby aspirin once daily. 2. Vitamin B12 daily. 3. Levothyroxine daily. 4. Losartan daily. 5. Simvastatin daily. 6. Spironolactone daily. ALLERGIES 1. CELEBREX which causes a rash. 2. PENICILLINS which cause hives. SOCIAL HISTORY Patient is a nonsmoker, and there is no history of illicit drug use or alcohol abuse. 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 FAMILY HISTORY Otherwise unremarkable. VITAL SIGNS Temperature is 99.5, blood pressure 139/92, heart rate is 185, respirations 16, oxygen saturation is 90% on room air. Weight is 105.7 kg. PHYSICAL EXAMINATION GENERAL: Patient is alert and oriented times three in no apparent distress, sitting in the exam room chair. HEENT: Exam reveals diffuse alopecia and anicteric sclerae. NEUROLOGIC: Examination is grossly nonfocal and her gait is normal. EXTREMITIES: Exam reveals no edema, clubbing or cyanosis. SKIN: Exam reveals no concerning rash or lesion. LABORATORY STUDIES Reviewed per the [facility] record. IMAGING AND PATHOLOGY CT scan of the abdomen and pelvis performed on August 26, 2017 reveals absent uterus and no evidence for residual or metastatic disease in the abdomen or pelvis. ASSESSMENT AND PLAN Stage IIIC1 endometrioid adenocarcinoma of the endometrium with squamous differentiation. I had a good visit with the patient and her loved ones today. For the most part, she has tolerated chemotherapy with expected toxicity. We spent time reviewing the reaction that she experienced during her initial infusion. Her second infusion went much better with changes in premedications. She has controlled her nausea well at home. She does feel prepared to begin her third cycle. As discussed today, we will strive for her to receive a total of six cycles. Although she had not mentioned this initially today, she does seem to have the beginnings of an upper respiratory infection. She is afebrile today, however. She will keep us posted of her symptoms, but I do not think that this will delay her chemotherapy. We spent time again today reviewing the big picture strategy for her treatment. This will include adjuvant carboplatin and paclitaxel, to be followed by concurrent cisplatin and radiation therapy, and likely brachytherapy. As discussed, we will certainly want to involve Dr. Eason later in her adjuvant chemotherapy cycle so that we can prepare for chemoradiation. The patient and her loved ones had several additional questions today, and I believe I answered all of their questions to their satisfaction. I will plan to see her back in one month's time, or sooner if there are questions or concerns. [facility]
[2017-10-08 08:50] VITALS: BP 147/100
[2017-10-08] MEDS: NS(*) 0.9% 500 ML BAG 500 ML IV PRN (08:56)
[2017-10-08] MEDS: FAMOTIDINE 10 MG/ML SDV IV PRN (09:37)
[2017-10-08] MEDS: DEXAMETHASONE SOD PHOS 10MG/ML IVP PRN (09:38)
[2017-10-08] MEDS: PALONOSETRON 0.25 MG/5 ML VIAL IVP PRN (09:39)
[2017-10-08] MEDS: diphenhydrAMINE 50 MG/ML VIAL IVP PRN (10:13)
[2017-10-08] MEDS: FOSAPREPITANT DIM 150 MG/5 ML 150 MG in NS(*) 0.9% 250 ML BAG 245 ML IVPB PRN (10:24)
[2017-10-08 16:17] VITALS: BP 144/76
[2017-10-08] MEDS: HEPARIN FLSH (PORT) 500 UN/5ML IVP PRN (16:17)
--- NOTE | 2017-10-09 15:13 | Medical Nutrition Therapy ---
Nutritional Education Nutrition Education Topic: Other (Endometial Ca) Learning Readiness: Interested Teaching Methods: Discussion, Handout Response to Teaching: Verbalize understanding Teaching Recipient: Patient Nutrition Counseling: Provided booklet on nutrition and Ca. Pt reports not haveing issues at this time. Pt was intereted in eating healthy and encoruage adequate protein, colorful fruits and veg, limiting nitrates. discussed nturitional supplement if intake declines and provided handout on makeing smoothies. Nutrition Monitoring & Eval RD Patient Assessment Time: 15 minutes Nutritional Comment: Provide 20 minutes MNT for CA. Copies To Copies to: DOMINGO VARGAS SEPARATOR OPERATOR-BC, ONC; VIKRAM MITCHELL MD, BETH Oct 09, 2017 15:12
[2017-10-15 09:02] VITALS: BP 120/98
[2017-10-15 09:25] LABS: PLATELET COUNT, AUTOMATED 141 K/uL (150-450)
[2017-10-22 10:09] VITALS: BP 127/70
[2017-10-22 10:29] LABS: PLATELET COUNT, AUTOMATED 94 K/uL (150-450)
[2017-10-29] MEDS: NS(*) 0.9% 500 ML BAG 500 ML IV PRN (09:15)
[2017-10-29 09:21] VITALS: BP 128/80
[2017-10-29] MEDS: HEPARIN FLSH (PORT) 500 UN/5ML IVP PRN (16:09)
--- NOTE | 2017-10-30 04:08 | ONCOLOGY FOLLOW UP NOTE ---
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 CHIEF COMPLAINT Fatigue, metallic taste in mouth. HISTORY OF PRESENT ILLNESS Ms. Knowles is here with her friends today. She reports that things have been going fairly well since her last visit here. She is here with tentative plans to receive her fourth of six planned cycles of chemotherapy. She has had some lack of appetite at times, but nausea has been pretty well controlled. She reports no new pain. She thinks she has lost a couple pounds. She denies fever. She reports no changes in her bowel habits, and she has had no new urinary symptoms. She does report that food has started to have a metallic taste, and she does have a metallic taste in her mouth in general. She has had no significant or abnormal bruising/bleeding. REVIEW OF SYSTEMS Otherwise negative, and all systems were reviewed with the exception of some modest peripheral neuropathy in her fingers that comes and goes. Her neuropathy is very, very mild today. PAST MEDICAL HISTORY 1. Hypertension. 2. Hypercholesterolemia. 3. Hypothyroidism. PAST SURGICAL HISTORY 1. As above. 2. Status post a surgical procedure on her hand. 3. Status post tonsillectomy. 4. Status post knee surgery last year. CURRENT MEDICATIONS 1. Baby aspirin once daily. 2. Vitamin B12 daily. 3. Levothyroxine daily. 4. Losartan daily. 5. Simvastatin daily. 6. Spironolactone daily. ALLERGIES 1. CELEBREX which causes a rash. 2. PENICILLINS which cause hives. SOCIAL HISTORY Patient is a nonsmoker, and there is no history of illicit drug use or alcohol abuse. 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 VITAL SIGNS Temperature is 97.8, blood pressure 128/80, heart rate is 74, respirations 16, oxygen saturation is 94% on room air. PHYSICAL EXAMINATION GENERAL: Patient is alert and oriented times three in no apparent distress, sitting in the infusion chair. HEENT: Exam reveals anicteric sclerae. NEUROLOGIC: Exam is grossly nonfocal, although I did not test her gait today. EXTREMITIES: Exam reveals no edema, clubbing or cyanosis. Extremity exam reveals no erythema or tenderness to palpation. LABORATORY STUDIES Reviewed per the [facility] record. Her platelet count is currently 66,000. ASSESSMENT AND PLAN Stage IIIC1 endometrioid adenocarcinoma of the endometrium with squamous differentiation. I had a good visit in the infusion center with the patient and her friends today. Symptomatically, she continues to do remarkably well. She is tolerating chemotherapy without significant toxicity. She has had some modest peripheral neuropathy, but this has come and gone. She has lost a few pounds, mostly due to lack of appetite and taste changes. She has been getting a fair amount of activity, and in general, she things are going pretty well. We spent time reviewing her labs today. Unfortunately, her platelet count is not at a point where we can safely give her chemotherapy today. We discussed the need to have her wait for a few days for her platelets to recover a bit further. I have recommended that she return on Thursday or Thursday of next week, at which time she will have repeat labs performed. I have asked the infusion staff to call me with the results of her labs to see whether or not she may be able to resume treatment early next week. In any case, I will plan to see her back in about a month's time when I am here at [facility] once again. MTDD
[2017-11-02] MEDS: NS(*) 0.9% 500 ML BAG 500 ML IV PRN (08:43)
[2017-11-02] MEDS: HEPARIN FLSH (PORT) 500 UN/5ML IVP PRN (08:43)
[2017-11-02 08:46] LABS: PLATELET COUNT, AUTOMATED 105 K/uL (150-450)
[2017-11-02] MEDS: diphenhydrAMINE 50 MG/ML VIAL IVP PRN (09:20)
[2017-11-02] MEDS: FAMOTIDINE 10 MG/ML SDV IV PRN (09:20)
[2017-11-02] MEDS: DEXAMETHASONE SOD PHOS 10MG/ML IVP PRN (09:21)
[2017-11-02] MEDS: PALONOSETRON 0.25 MG/5 ML VIAL IVP PRN (09:21)
[2017-11-02] MEDS: FOSAPREPITANT DIM 150 MG/5 ML 150 MG in NS(*) 0.9% 250 ML BAG 245 ML IVPB PRN (10:07)
[~2017-11-09] VITALS: Ht 160 cm; Wt 102.1 kg
[~2017-11-09] MED LIST changes: +ALTEPLASE RECOMB 2 MG VIAL IVP PRN; +CARBOPLATIN IVPB ONE; +D5W VISIV IVPB ONE; +DEXTROSE 5%(*) 100 ML BAG 100 ML IVPB PRN; +NS 0.9% IVPB ONE; +NS(*) 0.9% 100 ML BAG 100 ML IVPB PRN; +PACLITAXEL IVPB ONE; -PEGFILGRASTIM 6 MG/0.6 ML SYR SUBQ ONE; +WATER STERILE 10 ML VIAL IVP PRN
[2017-11-09 17:08] LABS: PLATELET COUNT, AUTOMATED 47 K/uL (150-450)
[2017-11-09 17:17] VITALS: BP 107/72
== END ==
LOC: ONC 08-11 09:07 → SPU 09-04 08:51 → ONC 09-07 08:21 → SPU 09-11 09:24 → ONC 09-17 08:55 → SPU 09-24 08:53 → ONC 09-30 08:49 → SPU 10-15 09:00 → ONC 10-29 08:49 → SPU 16:11
PROVIDERS: ATTEND Internal Medicine Medical Oncology
DX: Z51.11 Encounter for antineoplastic chemotherapy (principal); C54.1 Malignant neoplasm of endometrium; D72.829 Elevated white blood cell count, unspecified; Z79.82 Long term (current) use of aspirin; Z79.899 Other long term (current) drug therapy; R21 Rash and other nonspecific skin eruption; D69.6 Thrombocytopenia, unspecified; D70.9 Neutropenia, unspecified
CPT/HCPCS: 36415; 36591; 36592; 81001; 85025; 85027; 96360; 96367; 96375; 96413; 96415; 96417; 99202; 99212; J1100; J1200; J1453; J1642; J2469; J7030; J7040; J7050; J7060; J9045; J9267; S0028; 82040; 82247; 82310; 82374; 82435; 82565; 82947; 84075; 84132; 84155; 84295; 84450; 84460; 84520; 96361; 97802

== ENCOUNTER 2017-11-26 09:00 | Outpatient (RCR) | payer OTHER ==
--- NOTE | 2017-09-08 16:59 | PT INITIAL EVALUATION ---
MEDICAL DIAGNOSIS: Endometrioid Adenocarcinoma TREATMENT DIAGNOSIS: Endometrioid Adenocarcinoma DATE OF ONSET: 09/08/17 SUBJECTIVE: Hernando Tolbert" is a pleasant 61 year-old female presenting for education concerning recent chemotherapy, surgery and likely following radiation treatment for her diagnosis of Endometrioid Adenocarcinoma. Pt underwent TERESA on Jul 21 followed by pathology examination revealing mets to the L inguinal lymph nodes. Since surgical intervention pt reports no problems with ADL's or pain. Pt recently started chemotherapy intervention on consisting of six cycles of adjuvant carboplatin and paclitaxel. This will be followed by external beam radiation therapy with weekly low dose cisplatin. It is likely that the patient would also undergo subsequent vaginal brachytherapy in [place] with Dr. Eason. Following first infusion, pt had reactions including facial flushing and swelling, as well as delayed onset of rash. Both conditions are resolving. Pt also reports recent onset of numbness and tingling in the hands and feet following the first round of chemo. REHAB PROBLEM LIST: Decreased Strength Decreased Endurance Decreased Function PREVIOUS MEDICAL HISTORY: Recent R Knee replacement in July,. 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 OBJECTIVE: Posture: Unremarkable. ROM: LE ROM full without pain Strength: LE MMT: Hip: Flexion: B 4+/5, All other LE MMT 5/5. Sensation: Pt reports mild numbness and tingling in fingers and toes, sensation intact to light touch. Mobility: ECOG Performance Status: Grade 0 Balance: Pt reports no LOB or falls recently. Other Objective Findings: FACT-G: PWB: , SWB: , EWB: , FWB: , Total: 89/108. ASSESSMENT: Pt shows signs and symptoms consistent with recent diagnosis of endometrioid adenocarcinoma including decreased strength secondary to recent surgical intervention. Physical therapy is indicate to minimize side-effects with ongoing oncological intervention as well as maintain pt function with ADL' s. Short Term Goals In 3 MO pt will maintain ECOG performance status of grade 1 or less for improved oncological outcomes and improved mobility with ADL's. In 3 MO pt will maintain FACT-G of 80/108 for maintenance of well being status. In 6 MO pt will maintain ECOG performance status of grade 1 or less for improved oncological outcomes and improved mobility with ADL's. In 6 MO pt will maintain FACT-G of 80/108 for maintenance of well being status. Patient's Goals Minimize side-effects and maintain function with ADL's. PLAN: Patient to be seen for Manual Therapy/STM/MET Strengthening/condition Ice/Heat Range of Motion Spinal Stabilization Ultrasound Stretching Iontophoresis Neuromuscular Re-ed Closed Chain Program Electrical Stim Posture/Body mechanics Gait Trg/Balance Trg Biofeedback Home Exercise Program Mech./Manual Traction Therapeutic Activities Pelvic Floor 1x/3 weeks for 6 MO If you have any questions, comments, or concerns about this report or plan, please contact me at . Thank you, Marge Leonard, PT, DPT, CLT MTDD
[~2017-11-26 09:00] MED LIST changes: -ALTEPLASE RECOMB 2 MG VIAL IVP PRN; -CARBOPLATIN IVPB ONE; -D5W VISIV IVPB ONE; -DEXTROSE 5%(*) 100 ML BAG 100 ML IVPB PRN; -METF-410 PO; +METF-411 PO; -NS 0.9% IVPB ONE; -NS(*) 0.9% 100 ML BAG 100 ML IVPB PRN; -PACLITAXEL IVPB ONE; -WATER STERILE 10 ML VIAL IVP PRN
--- NOTE | 2017-11-27 16:21 | PT PLAN OF CARE ---
Physician: Pranya Castillo MD Patient is being seen: 1x/MO Therapist: Marge Leonard, PT, DPT, CLT Medical Diagnosis: Endometrioid Adenocarcinoma Treatment Diagnosis: Endometrioid Adenocarcinoma Date of Onset: 09/08/17 Date of Initial Evaluation: 09/08/17 Date patient was last seen: 11/26/17 Number of treatments: 2 Number of cancellations/No shows: 0 INTERVENTIONS: Manual Therapy/STM/MET Strengthening/condition Ice/Heat Range of Motion Spinal Stabilization Ultrasound Stretching Iontophoresis Neuromuscular Re-ed Closed Chain Program Electrical Stim Posture/Body mechanics Gait Trg/Balance Trg Biofeedback Home Exercise Program Mech./Manual Traction Therapeutic Activities Pelvic Floor GOALS: In 3 MO pt will maintain ECOG performance status of grade 1 or less for improved oncological outcomes and improved mobility with ADL's. MET In 3 MO pt will maintain FACT-G of 80/108 for maintenance of well being status. In 6 MO pt will maintain ECOG performance status of grade 1 or less for improved oncological outcomes and improved mobility with ADL's. In 6 MO pt will maintain FACT-G of 80/108 for maintenance of well being status. PATIENT'S GOAL: Minimize side-effects and maintain function with ADL's. Status of Patient's Goals: In Progress Patient Compliance: Good Prognosis: Good Reasons for continuing therapy: Gricelda shows good maintenance of activity level with pt continuing to work and perform light aerobic exercise. Pt reports no increase in neuropathy or side-effects at this time or pain. Further PT is indicated to maintain improvements in functional and physical well-being status with ongoing treatment. Posture: Unremarkable. ROM: LE ROM full without pain Strength: LE MMT: Hip: Flexion: B 4+/5, All other LE MMT 5/5. Mobility: ECOG Performance Status: Grade 0 Outcome Measures: FACT-G (EVAL): PWB: , SWB: , EWB: , FWB: , Total: 89/108. FACT-G 11/26/17: PWB: , SWB: , EWB: , FWB: , Total: 92/ 108. If you have any questions or concerns, please feel free to contact me at [phone]. Thank you, Marge Leonard, PT, DPT, CLT MTDD
== END 2017-12-07 ==
LOC: PT 09:00
PROVIDERS: ATTEND Internal Medicine Hematology
DX: C54.1 Malignant neoplasm of endometrium (principal); R20.2 Paresthesia of skin; Z96.651 Presence of right artificial knee joint
CPT/HCPCS: 97162

== ENCOUNTER → 2017-11-27 | Outpatient (CLI) | payer OTHER ==
[~2017-11-27] MED LIST changes: +PEGFILGRASTIM 6 MG/0.6 ML SYR SUBQ ONE
[2017-11-27 16:05] VITALS: BP 115/80
== END ==
LOC: SPU 10:35
PROVIDERS: ATTEND Internal Medicine Medical Oncology
DX: C54.1 Malignant neoplasm of endometrium (principal)
CPT/HCPCS: 96372; J2505

== ENCOUNTER → 2017-12-23 | Outpatient (CLI) | payer OTHER ==
[2017-12-23 16:24] VITALS: BP 133/71
== END ==
LOC: SPU 12-17 08:17
PROVIDERS: ATTEND Internal Medicine Medical Oncology
DX: C54.1 Malignant neoplasm of endometrium (principal)
CPT/HCPCS: 96372; J2505

== ENCOUNTER → 2018-01-27 | Outpatient (CLI) | payer OTHER ==
[~2018-01-27] MED LIST changes: -PEGFILGRASTIM 6 MG/0.6 ML SYR SUBQ ONE; -SPIR25TA78 PO; +SPIR25TA80 PO
== END ==
LOC: AUD 11:45
PROVIDERS: ATTEND Internal Medicine Medical Oncology
DX: H91.91 Unspecified hearing loss, right ear (principal)
CPT/HCPCS: 92552

== ENCOUNTER 2018-02-09 08:27 | Outpatient (RCR) | payer OTHER ==
[2017-11-12 08:45] VITALS: BP 146/79
[2017-11-12] MEDS: HEPARIN FLSH (PORT) 500 UN/5ML IVP PRN (08:57)
[2017-11-12] MEDS: NS(*) 0.9% 500 ML BAG 500 ML IV PRN ×2 (08:57→09:48)
[2017-11-13 13:33] VITALS: BP 121/74
[2017-11-13] MEDS: HEPARIN FLSH (PORT) 500 UN/5ML IVP PRN (14:05)
[2017-11-13] MEDS: LIDOCAINE/SOD BICARB 8.4% SYR ID PRN (14:05)
[2017-11-16 16:55] VITALS: BP 121/74
[2017-11-16 16:56] LABS: PLATELET COUNT, AUTOMATED 40 K/uL (150-450)
[2017-11-18 09:37] VITALS: BP 149/87
--- NOTE | 2017-11-18 17:26 | ONCOLOGY FOLLOW UP NOTE ---
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 CHIEF COMPLAINT Fatigue, nausea. HISTORY OF PRESENT ILLNESS Ms. Knowles is here with her friends today. She has now completed four cycles of carboplatin and paclitaxel, with expected toxicity. She relates that her most recent cycle was a little bit more tolerable, and she admits that she had not been using her antiemetic medications at home as often as she could have. She reports no fever. She is sleeping fairly well. She has had no new pain. She denies problems with bowel and bladder habits. She is confident that she can move forward with her final two cycles of chemotherapy, but she is having more persistent numbness and tingling in her fingers, and less so in her toes. REVIEW OF SYSTEMS Otherwise negative, and all systems were reviewed. PAST MEDICAL HISTORY 1. Hypertension. 2. Hypercholesterolemia. 3. Hypothyroidism. PAST SURGICAL HISTORY 1. As above. 2. Status post a surgical procedure on her hand. 3. Status post tonsillectomy. 4. Status post knee surgery last year. CURRENT MEDICATIONS 1. Baby aspirin once daily. 2. Vitamin B12 daily. 3. Levothyroxine daily. 4. Losartan daily. 5. Simvastatin daily. 6. Spironolactone daily. 7. Metformin. 8. Zyrtec. 9. Benadryl p.r.n. 10. Ranitidine. 11. Ativan p.r.n. 12. Lidocaine cream. 13. Compazine p.r.n. 14. Zofran p.r.n. ALLERGIES 1. CELEBREX which causes a rash. 2. PENICILLINS which cause hives. SOCIAL HISTORY Patient is a nonsmoker, and there is no history of illicit drug use or alcohol abuse. 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 VITAL SIGNS Temperature is 99.7, blood pressure 149/87, heart rate is 85, respirations 16, oxygen saturation is 90% on room air. Weight is 103.1 kg. PHYSICAL EXAMINATION GENERAL: Patient is alert and oriented times three in no apparent distress, sitting in the exam room chair. She is in good spirits. HEENT: Exam reveals anicteric sclerae. NEUROLOGIC: Exam is grossly nonfocal, and her gait is normal. EXTREMITIES: Exam reveals no edema, clubbing or cyanosis. There is no erythema or tenderness to palpation of the bilateral lower extremities. SKIN: Exam reveals no concerning rash or lesion. LABORATORY STUDIES Reviewed per the [facility] record. ASSESSMENT AND PLAN Stage IIIC1 endometrioid adenocarcinoma of the endometrium with squamous differentiation. Ms. Knowles seems to be doing better symptomatically in terms of nausea control, now that she understands better how to use her antiemetic medications at home. We spent time today discussing cycle five and cycle six to complete her chemotherapy. She does have some worsening peripheral neuropathy, and this will need to be watched closely. If this gets worse in the next cycle, we may need to dose reduce or omit the Taxol. She otherwise seems to be doing fairly well. She had questions today about her schedule for radiation therapy. I do think it would be quite reasonable for her to get in with Dr. Eason a little earlier, as the patient has been quite curious about how her schedule will look. We will plan to have her receive concurrent cisplatin, depending on the radiation schedule that is planned. The patient had several additional questions for me today, and I believe I answered all of her questions to her satisfaction. I will plan to see her back in one month's time, or sooner if there are questions or concerns. MTDD
[2017-11-23 08:27] VITALS: BP 153/85
[2017-11-23] MEDS: NS(*) 0.9% 500 ML BAG 500 ML IV PRN (08:49)
[2017-11-23] MEDS: HEPARIN FLSH (PORT) 500 UN/5ML IVP PRN (08:49)
[2017-11-26 08:50] VITALS: BP 144/59
[2017-11-26] MEDS: FAMOTIDINE 10 MG/ML SDV IVP PRN (09:46)
[2017-11-26] MEDS: DEXAMETHASONE SOD 20MG/5 ML VL IVP PRN (09:46)
[2017-11-26] MEDS: diphenhydrAMINE 50 MG/ML VIAL IVP PRN (09:47)
[2017-11-26] MEDS: PALONOSETRON 0.25 MG/5 ML VIAL IVP PRN (09:47)
[2017-11-26] MEDS: NS(*) 0.9% 500 ML BAG 500 ML IV PRN (09:55)
[2017-11-26] MEDS: LIDOCAINE/SOD BICARB 8.4% SYR ID PRN (09:55)
[2017-11-26] MEDS: FOSAPREPITANT DIM 150 MG/5 ML 150 MG in NS(*) 0.9% 250 ML BAG 245 ML IVPB PRN (10:25)
[2017-11-26 15:49] VITALS: BP 148/60
[2017-11-26] MEDS: HEPARIN FLSH (PORT) 500 UN/5ML IVP PRN (15:49)
[2017-12-02 11:27] VITALS: BP 147/115
[2017-12-02] MEDS: NS(*) 0.9% 1000 ML BAG 1,000 ML IV PRN (11:30)
[2017-12-02] MEDS: LIDOCAINE/SOD BICARB 8.4% SYR ID PRN (11:34)
[2017-12-02 11:35] LABS: PLATELET COUNT, AUTOMATED 101 K/uL (150-450)
[2017-12-02] MEDS: HEPARIN FLSH (PORT) 500 UN/5ML IVP PRN (12:33)
[2017-12-02 12:37] VITALS: BP 151/60
[2017-12-03 15:21] VITALS: BP 114/64
[2017-12-03] MEDS: HEPARIN FLSH (PORT) 500 UN/5ML IVP PRN (15:21)
[2017-12-03] MEDS: NS(*) 0.9% 1000 ML BAG 1,000 ML IV PRN (15:21)
[2017-12-03] MEDS: LIDOCAINE/SOD BICARB 8.4% SYR ID PRN (15:21)
[2017-12-03 16:23] VITALS: BP 131/50
[2017-12-07] MEDS: NS(*) 0.9% 1000 ML BAG 1,000 ML IV PRN (10:47)
[2017-12-07] MEDS: LIDOCAINE/SOD BICARB 8.4% SYR ID PRN (10:47)
[2017-12-07] MEDS: HEPARIN FLSH (PORT) 500 UN/5ML IVP PRN (10:47)
[2017-12-07 11:30] VITALS: BP 137/87
--- NOTE | 2017-12-09 18:21 | ONCOLOGY FOLLOW UP NOTE ---
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 CHIEF COMPLAINT Fatigue. HISTORY OF PRESENT ILLNESS Ms. Knowles is here with her loved ones today. She reports that things have been going reasonably well, with the exception of ongoing fatigue that on some days has been pretty significant. She reports no fever. Her appetite has been modest, but she has not lost weight. She reports no pain. Her bowel habits have been somewhat unpredictable, but she has had some loose stools. She denies new urinary symptoms. She has completed five cycles of carboplatin and paclitaxel, and she will be beginning her sixth cycle very soon. REVIEW OF SYSTEMS Otherwise negative, and all systems were reviewed. PAST MEDICAL HISTORY 1. Hypertension. 2. Hypercholesterolemia. 3. Hypothyroidism. PAST SURGICAL HISTORY 1. As above. 2. Status post a surgical procedure on her hand. 3. Status post tonsillectomy. 4. Status post knee surgery last year. CURRENT MEDICATIONS 1. Baby aspirin once daily. 2. Vitamin B12 daily. 3. Levothyroxine daily. 4. Losartan daily. 5. Simvastatin daily. 6. Spironolactone daily. 7. Metformin. 8. Zyrtec. 9. Benadryl p.r.n. 10. Ranitidine. 11. Ativan p.r.n. 12. Lidocaine cream. 13. Compazine p.r.n. 14. Zofran p.r.n. ALLERGIES 1. CELEBREX which causes a rash. 2. PENICILLINS which cause hives. SOCIAL HISTORY Patient is a nonsmoker, and there is no history of illicit drug use or alcohol abuse. 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 VITAL SIGNS Temperature is 97.7, blood pressure 114/78, heart rate is 74, respirations 16, oxygen saturation is 89% on room air. Weight is 222 pounds. PHYSICAL EXAMINATION GENERAL: Patient is alert and oriented times three in no apparent distress, sitting in the exam room chair. She is interactive and pleasant. HEENT: Exam reveals anicteric sclerae. NEUROLOGIC: Exam is grossly nonfocal, and her gait is normal. EXTREMITIES: Exam reveals no edema, clubbing or cyanosis. SKIN: Exam reveals no concerning rash or lesion. LABORATORY STUDIES Reviewed per the [facility] record. ASSESSMENT AND PLAN Stage IIIC1 endometrioid adenocarcinoma of the endometrium with squamous differentiation. Ms. Knowles continues to do fairly well with ongoing carboplatin and paclitaxel. She has completed five cycles now. She has had some problems with cytopenias requiring treatment adjustment. She does have a moderate thrombocytopenia today, but she has had no worrisome bleeding symptoms. She has visited since our last clinic visit with Dr. Eason in Radiation Oncology, and plans have been made for simulation, and the plan moving forward will be for her to receive concurrent weekly cisplatin. This will be arranged here. We spent time today discussing cisplatin, and the potential risks and side effects. I do think it would be santillan for her to undergo another chemotherapy education to discuss things in more detail. We did discuss in particular the risk of nausea and vomiting, kidney damage, peripheral neuropathy, and hearing loss. The patient understands these risks. We will plan for her to begin her weekly cisplatin at the time that she initiates radiation therapy with Dr. Eason. Likely this will be about five weeks in total. She does plan to do brachytherapy in [place] at the end of her radiation stint. I will plan to see her back in one month's time, or sooner if there are questions or concerns. MTDD
[2017-12-17 08:41] VITALS: BP 137/76
[2017-12-17] MEDS: NS(*) 0.9% 500 ML BAG 500 ML IV PRN (08:58)
[2017-12-17] MEDS: LIDOCAINE/SOD BICARB 8.4% SYR ID PRN (08:58)
[2017-12-17] MEDS: HEPARIN FLSH (PORT) 500 UN/5ML IVP PRN (10:14)
[2017-12-17 10:42] VITALS: BP 130/63
[2017-12-22 08:41] VITALS: BP 126/69
[2017-12-22] MEDS: LIDOCAINE/SOD BICARB 8.4% SYR ID PRN (08:45)
[2017-12-22] MEDS: NS(*) 0.9% 500 ML BAG 500 ML IV PRN (09:20)
[2017-12-22] MEDS: FAMOTIDINE 10 MG/ML SDV IVP PRN (09:25)
[2017-12-22] MEDS: DEXAMETHASONE SOD 20MG/5 ML VL IVP PRN (09:30)
[2017-12-22] MEDS: diphenhydrAMINE 50 MG/ML VIAL IVP PRN (09:30)
[2017-12-22] MEDS: PALONOSETRON 0.25 MG/5 ML VIAL IVP PRN (09:30)
[2017-12-22] MEDS: FOSAPREPITANT DIM 150 MG/5 ML 150 MG in NS(*) 0.9% 250 ML BAG 245 ML IVPB PRN (10:22)
[2017-12-22 15:43] VITALS: BP 145/70
[2017-12-22] MEDS: HEPARIN FLSH (PORT) 500 UN/5ML IVP PRN (15:55)
[2017-12-29 10:55] LABS: PLATELET COUNT, AUTOMATED 18 K/uL (150-450)
[2017-12-29] MEDS: LIDOCAINE/SOD BICARB 8.4% SYR ID PRN (11:17)
[2017-12-29] MEDS: NS(*) 0.9% 1000 ML BAG 1,000 ML IV PRN (11:17)
[2017-12-29 11:53] VITALS: BP 155/93
[2017-12-29 12:27] VITALS: BP 155/92
[2017-12-29] MEDS: HEPARIN FLSH (PORT) 500 UN/5ML IVP PRN (12:38)
--- NOTE | 2017-12-30 04:22 | ONCOLOGY FOLLOW UP NOTE ---
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 CHIEF COMPLAINT Fatigue, lack of appetite. HISTORY OF PRESENT ILLNESS Ms. Knowles returns to clinic for a followup visit today. She has received her sixth and final cycle of carboplatin and paclitaxel. She reports ongoing significant fatigue, but no fever. She reports no new pain. She has very little appetite, although she is not nauseated, per se. She has had no vomiting. She reports some weight loss, and that she has had some problems staying hydrated due to her lack of desire to eat and drink. She denies shortness of breath, chest pain, and cough. She has had no new urinary symptoms. She has questions about her upcoming plans for cisplatin radiation therapy. REVIEW OF SYSTEMS Otherwise negative, and all systems were reviewed. PAST MEDICAL HISTORY 1. Hypertension. 2. Hypercholesterolemia. 3. Hypothyroidism. PAST SURGICAL HISTORY 1. As above. 2. Status post a surgical procedure on her hand. 3. Status post tonsillectomy. 4. Status post knee surgery last year. ALLERGIES 1. CELEBREX which causes a rash. 2. PENICILLINS which cause hives. SOCIAL HISTORY Patient is a nonsmoker, and there is no history of illicit drug use or alcohol abuse. 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 CURRENT MEDICATIONS 1. Metformin. 2. Zyrtec. 3. Benadryl p.r.n. 4. Ativan p.r.n. 5. Lidocaine/prilocaine cream p.r.n. 6. Compazine p.r.n. 7. Zofran p.r.n. 8. B12 p.r.n. 9. Spironolactone. 10. Baby aspirin daily. 11. Losartan. 12. Levothyroxine. 13. Simvastatin. 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 Ms. Knowles has completed six cycles of carboplatin and paclitaxel with expected, but at times fairly significant, toxicity. At this point, her biggest concerns are fatigue, lack of appetite and weight loss. She does not feel nauseated. We spent time today discussing the possibilities for appetite stimulation. These include Marinol, dexamethasone and Megace, amongst other things. After discussion about these, she does not seem particularly interested. I would not recommend that she consider Megace, but if she changes her mind about one of the other two, I have asked her to be in touch. She has agreed to do so. We spent time today reviewing her labs. She has a low white blood cell count as anticipated, and her platelet count is also low at 18,000. She has no abnormal bleeding symptoms. We discussed that she needs to call as soon as possible with any epistaxis, blood in the stool or blood in the urine, as well as severe headache. I have asked her to have a repeat CBC drawn later this week, perhaps , to make sure that her platelet count is not falling further. We moved on to discuss the start of combined modality therapy with weekly cisplatin and radiation. I think the tentative dates planned are fine at this point, but she may need a bit more time to recover her marrow due to our current look at her cytopenias. As discussed, I would like to see her back in clinic during my next trip to [facility]. I spent a total of 30 minutes of time face to face with the patient today, 25 minutes of this was spent in direct counseling and coordination of care. [facility]
[2017-12-31] MEDS: LIDOCAINE/SOD BICARB 8.4% SYR ID PRN (14:55)
[2017-12-31 14:56] VITALS: BP 129/55
[2017-12-31] MEDS: NS(*) 0.9% 1000 ML BAG 1,000 ML IV PRN (14:56)
[2017-12-31] MEDS: HEPARIN FLSH (PORT) 500 UN/5ML IVP PRN (14:56)
[2017-12-31 15:26] LABS: PLATELET COUNT, AUTOMATED 16 K/uL (150-450)
--- NOTE | 2018-01-01 16:50 | Pharmacy Note ---
Pharmacy Note Note: Clinical Pharmacist Note: Chemotherapy Education Visit Date: 01/01/18 Chemotherapy Regimen: Cisplatin weekly x 7 weeks The regimen includes cisplatin weekly x 7 weeks with concurrent radiation The schedule of treatment administration was explained in detail to the patient in regards to lab visits, timing and sequence of premedications and chemotherapy , followed by any supportive medications to be given. Discussed the purpose of the port and why we administer chemotherapy through a port. Port placed prior to chemo ed appointment. Patient's diagnosis, treatment plan, and intent of treatment along with goals are outlined on the signed consent form, that was reviewed and signed at the end of this appointment. The goal is curative treatment (recovery from disease) . The potential for drug/drug interaction and drug/food interactions were explained to the patient. Patient was instructed to report any new medications to the office. A medication reconciliation was reviewed by the pharmacist today. We reviewed and discussed toxicities of supportive care medications and how to appropriately use supportive medications including the schedule of anti- emetics. These medications include the following: Take home medications: dexamethasone, ondansetron, prochlorperazine Pre-medications: fosaprepitant, palonosetron, dexamethasone Supportive Medications: none at this time We have also discussed the potential for long and short term side effects of chemotherapy including, but not limited to the side effects outlined below: -Low WBCs or neutropenia: Patient may experience bone marrow toxicity that would increase their risk for infection. Patient is aware to look for signs and symptoms of infection (e.g. fever of higher than 100.4F, chills, sore throat , etc.) and knows what number to call and when to contact the clinic. Advised patient of things they can do such as wash hands with soap and water often, avoid people who are sick, and avoid crowds during times of low blood counts ( typically 7-10 days post chemotherapy). Discussed the need for pegfilgrastim with dose dense AC to reduce the risk of neutropenia. - Low RBCs or anemia: Anemia is when you don't have enough red blood cells to carry oxygen through your body, which causes fatigue, weakness, lightheadedness , pale skin, SOB, or headaches. Discussed the importance of getting enough restful sleep at night and eating a diet rich in iron. Lab values will be closely monitored to check your RBCs. Advised patient to contact the clinic if they have a fast heart rate, dizziness, or lightheadedness. -Low platelet counts or thrombocytopenia: Patient may experience low platelets which can lead to increased risk of bleeding, easy bruising, black or bloody stools, or small red or purple spots on the skin. Platelets help blood to clot and if your platelets are low enough, bleeding may not stop after a few minutes. Excessive bleeding or bruising, red spots on your skin or new onset headaches require a phone call to the clinic. - Fatigue (feeling tired): Some patients may experience fatigue, or feel tired , weak, low energy, drained or exhausted. You will experience fatigue after chemotherapy, but the amounts for each person and chemotherapy will differ. Advised patient to stay active as much as they can with light exercise, take short naps if needed, get a restful night of sleep, and eat a well-balanced diet. Call the clinic if you are unable to get out of bed or do typical daily activities, have shortness of breath, or have trouble walking small distances. -Nausea or vomiting: Most patients may experience some level of nausea ( feeling queasy or sick to your stomach) or vomiting. Advised patient to take their anti-nausea medications as prescribed, drink plenty of fluids, eat several small meals throughout the day, eat bland easy to digest foods, and speak to our director of occupational therapy if they have questions. Call the clinic if the nausea or vomiting is not eased by your medications and lasts 12 hours or longer, or if unable to eat or drink, or keep medicines down. - Appetite changes (eating less or more): You may experience a decrease or increase in your appetite that might last a day, weeks or months. Advised patient to set a schedule for eating and drink high protein drinks to maintain calories. Ask your doctor or nurse for a director of occupational therapy consult to help manage your appetite changes or if you have concerns about your appetite changes. Contact the clinic if you notice a change in weight and if you are unable to take in more than a few bites of food or sips of liquid at mealtimes. Favorite foods may also taste different or may not be pleasing. -Hair loss or alopecia: Hair loss typically begins 2-3 weeks after the first chemotherapy treatment and can range from thinning to full body hair loss, and can occur anywhere on your body. Your hair may come out a little at a time or in clumps and your scalp may feel tender before the hair falls out. In the meantime, you can cut your hair or choose a wig- protect your head and wear sunscreen and mild shampoo and brushes. The hair will usually grow back about 2 -3 months after you finish chemotherapy and may be a different texture or color when it returns. -Mouth sores and oral care (mucositis or stomatitis): Patient was informed that they may experience taste changes, dry mouth, and potential mouth sores due to the chemotherapy. The best way to prevent and treat mouth sores is to do routine mouth care each day. If mouth sores occur, use mouth rinses with baking soada, alst and warm water after meals and before bed (dissolve 2 TBSP of baking soda and 1/2 tsp of salt in 8 oz of warm water--swish and spit). Avoid mouthwashes with alcohol and spicy food if mouth sores exist. If dry mouth occurs, sucking on ice chips or sugar free hard candy can help. -Hypersensitivity reaction: Patient may experience a reaction while cisplatin is infusing with the potential following symptoms: rash, hives, itching, shortness of breath, wheezing, cough, swelling of the face, lips, tongue, throat. Pt knows to report and "odd" feelings during infusion and any of the symptoms listed. Pt does have a history of receiving 6 cycles of carboplatin already. RNs will monitor closely during infusion. -Hepatotoxicity: There is a risk of toxicity to your liver. Your lab work will be watched closely to determine if this is occurring and any required dose adjustments will be made at that time. -Nephrotoxicity: There is a risk for toxicity to the kidneys and patient will be followed closely to watch for signs and symptoms of renal toxicity, hypokalemia, and hypomagnesemia. Patient will receive pre and post hydration with each dose of cisplatin and as needed hydration for elevated Scr and dehydration. -Neuropathy (numbness-pins and needles-tingling): Patient may experience acute and chronic neuropathy that can potentially be irreversible due to the chemotherapy. The patient is advised to report symptoms to the clinic if they experience burning, tingling, and numbness in the hands, feet, face or mouth. -Sexual and Reproductive Health: There is an increased risk of chemotherapy exposure to your partner when you are on chemo. When sexually active, wear a protective barrier while on chemotherapy. It is important to use control measures while on chemotherapy. Ask your provider when it might be safe again to try for . If you are , consult with your provider to determine if it is safe to breastfeed. -Infertility: Risk for infertility secondary to chemotherapy was screened at today's appointment. Infertility was of no concern to the patient at this time. -Secondary Malignancies: There is a risk of secondary malignancies such as acute myelogenous leukemia (AML) and myelodysplastic syndromes (MDS) in patients that are treated with anthracyclines and typically occurs within 1-3 years of treatment. -Extravasation: The patient is receiving a vesicant as part of their chemotherapy regimen. While the risk of extravasation with a port is very low, there is still a risk. Discussed what a vesicant is and that extravasation of a vesicant can lead to severe local tissue injury and necrosis requiring surgical intervention and possible skin grafting. Patient was educated to report any pain or burning at the port site [place]. -Other Toxicities: Electrolyte changes, nephrotoxicity, and ototoxicity: Patient will be monitored closely for toxicities listed. Lab work will be reviewed weekly and the patient will be notified with these changes and if there are changes, may need additional follow up and testing. Patient has already received the Standard Chemotherapy Education Binder with appropriate phone numbers and we reviewed symptoms that would prompt a call to the clinic. Upcoming appointments were discussed and patient knows to follow up at the frontload driver to get print outs of their schedule and the processes to change/ cancel an appointment. Consent was reviewed with the patient and signed in my presence. The treating physician will review and sign the consent. Allergies were reviewed: Penicillins and celecoxib At the end of this discussion, the patient verbalized understanding of the provided education and information and all of her questions were answered to her satisfaction. Patient knows how to reach me if further questions or concerns come up. Time spent with the patient: 60 minutes, with all 60 minutes being spent counseling on the detailed information above. Priti Delong, PharmD, BCOP PRITI DELONG Jan 01, 2018 16:50
[2018-01-05 09:11] LABS: PLATELET COUNT, AUTOMATED 16 K/uL (150-450)
[2018-01-08 14:24] VITALS: BP 136/50
[2018-01-08 14:55] LABS: PLATELET COUNT, AUTOMATED 16 K/uL (150-450)
[2018-01-15 09:50] LABS: PLATELET COUNT, AUTOMATED 57 K/uL (150-450)
[2018-01-15 17:21] VITALS: BP 131/85
[2018-01-21 12:39] VITALS: BP 118/74
[2018-01-21] MEDS: NS(*) 0.9% 1000 ML BAG 1,000 ML IV PRN (12:47)
[2018-01-21] MEDS: HEPARIN FLSH (PORT) 500 UN/5ML IVP PRN (12:48)
[2018-01-25 13:50] VITALS: BP 109/84
[2018-01-25] MEDS: LIDOCAINE/SOD BICARB 8.4% SYR ID PRN (13:51)
[2018-01-25] MEDS: NS(*) 0.9% 1000 ML BAG 1,000 ML IV PRN (13:51)
[2018-01-25] MEDS: HEPARIN FLSH (PORT) 500 UN/5ML IVP PRN (13:52)
[2018-01-27 08:25] VITALS: BP 111/58
[2018-01-27] MEDS: NS(*) 0.9% 1000 ML BAG 1,000 ML IV PRN (09:17)
--- NOTE | 2018-01-27 09:28 | Oncology Progress Note ---
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 Procedure/Surgical History: hysterectomy in 2017, right hand surgical procedure in 2001, right knee replacement in 07/2016 and tonsillectomy. Drinks occasionally. works in accounting/finance. Daily activities. [id number] - Planned Dose 3,600cGy - Actual Dose 1,260cGy Verification 2.9 depth Verification1 C1 8 day(s) Treatment Treatment 2018 - six cycles of carboplatin and paclitaxel with expected, but at times fairly significant, toxicity. -XRT HPI HPI Ms. 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 Dx: 06/25/2017. S/p six cycles of carboplatin and paclitaxel with expected, but at times fairly significant, toxicity. She is currently receiving XRT. Patient presents to the cancer center today for initiation of cisplatin management for her diagnosis. 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 She is AAOX4, hemodynamically stable and afebrile, denies any cardiac type chest pain, no abdominal pain, no fevers at home, no vaginal bleeding or discharge. 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 Living Conditions Lives with partner. Diagnostic Studies Result Diagram: 01/27/1820 01/27/18 0820 PMH Patient History: FH: diabetes mellitus FATHER BROTHER OR SISTER FH: heart disease FATHER BROTHER OR SISTER Social/Occupational History Social History: Social History This is a 62 Yr old White female, she is S Single and has [] Children Hx Smoking: No Smoking Status: Never Smoker Exposure to Second Hand Smoke?: No Allergies & Medications Allergies: Coded Allergies: Penicillins (Verified Allergy, Intermediate, HIVES, 07/08/16) celecoxib (Verified Allergy, Unknown, HIVES, 09/24/16) Home Meds Active Scripts Lorazepam (ATIVAN) 0.5 Mg Tablet, 0.5 MG PO Q4-6H Y for NAUSEA for 30 Days, #30 TAB 1 Refill Prov:DOMINGO VARGAS [facility], ONC 08/28/17 Lidocaine/Prilocaine (LIDOCAINE-PRILOCAINE CREAM) 30 Gm Cream..g., 30 GM TP PRN , #1 G 1 Refill Prov:DOMINGO VARGAS [facility], ONC 08/28/17 Prochlorperazine Maleate (Compazine) 10 Mg Tablet, 10 MG PO Q6H, #30 TAB Prov:DOMINGO VARGAS [facility], ONC 08/28/17 Ondansetron (ZOFRAN ODT) 4 Mg Tab.rapdis, 8 MG PO Q8H, #30 TAB.SUMMER 1 Refill Prov:DOMINGO VARGAS [facility]-, ONC 08/28/17 Reported Medications Metformin Hcl (METFORMIN HCL) 500 Mg Tablet, 1 TAB PO BID, TAB 09/30/17 Cetirizine Hcl (ZYRTEC) 10 Mg Tablet, 10 MG PO QDAY, TAB 09/08/17 Diphenhydramine Hcl (BENADRYL) 25 Mg Capsule, 50 MG PO BID, CAPSULE 09/08/17 Mecobalamin (B-12) 1,000 Mcg Tab.rapdis, 1000 MCG SL DIRECTED 08/11/17 Spironolactone (SPIRONOLACTONE) 25 Mg Tablet, 25 MG PO DAILY, TAB 08/11/17 Aspirin (ASPIR 81) 81 Mg Tablet.dr, 81 MG PO QDAY, TAB 09/24/16 Losartan Potassium (LOSARTAN POTASSIUM) 100 Mg Tablet, 100 MG PO QDAY 07/08/16 Levothyroxine Sodium (LEVOTHYROXINE SODIUM) 88 Mcg Tablet, 88 MCG PO QDAY 07/08/16 Simvastatin (SIMVASTATIN) 40 Mg Tablet, 40 MG PO HS, TAB 07/08/16 Review of Systems Constitution: Denies Appetite/Weight Change, Denies Fever/Chills/Sweating, Denies Recent Infection, Denies Other HEENT: No EARS: Tinnitus, No NOSE: Nasal Discharge, No THROAT: Sore Throat, No EYES: Dipolpia, No EARS: Hearing Problems, No NOSE: Epistaxis, No THROAT: Mouth Ulcers, No EYES: Vision Change, No OTHER Respiratory: No Cough, No Expectoration, No Hemoptysis, No Shortness of Breath , No OTHER Cardiovascular: No Chest Pain, No Orthopnea, No Edema, No Palpitations, No OTHER Gastrointestinal: No Nausea, No Vomitting, No Diarrehea, No Constipation, No Heart Burn, No Swallowing Difficulties, No Abdominal Pain, No Other Gentiourinary: No Hematuria, No Dysuria, No Nocturia, No Other Musculoskeletal: No Muscle Pain, No Joint Pain, No Bone Pain, No Other Hematological: Fatigue Skin: No Skin Rash, No Lumps, No Erythema, No Dry Skin, No Moist Skin, No Other Psychiatric: No Anxiety, No Depression, No Other Vital Signs Vital Signs Temperature: 98.4 Pulse: 92 BP Systolic: 111 BP Diastolic: 58 Respiratory Rate: 16 O2 SAT: 92 O2 Delivery: Height (feet) Height (inches) 63.00 Weight lb: 226 Weight oz: Weight Kg (Bebo): Pain: 0 ECOG -1 Physical Exam Psychiatric: Mood appears normal Skin: No Skin Rashes, No Bruising, No Purpura, No Moist Desquamation, No Dry Desquamation, No Errythema, No Mild Errythema, No Moderate Errythema, No Severe Errythema, No Induration, No Other Breast: No No Masses, No No Nipple Discharge, No No Skin Changes, No Other Assessment and Plan Assessment and Plan Ms. 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 Dx: 06/25/2017. S/p six cycles of carboplatin and paclitaxel with expected, but at times fairly significant, toxicity. She is currently receiving XRT. Plan is to initiate cisplatin. DIAGNOSTIC DATA WBC is 1.7; hemoglobin 9.4; hematocrit 27.2; platelet count 142; ANC 0.9; chem panel within normal limits except creatinine at 1.1; and magnesium at 1.0, 1. 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 Dx : 06/25/2017. S/p six cycles of carboplatin and paclitaxel with expected, but at times fairly significant, toxicity. She is currently receiving XRT. Plan was to initiate cisplatin today 01/27/18, given low counts, with significant history of toxicities. We will Hold initial treatment of Cisplatin for today , we will recheck lab values on Thursday and proceed as clinically indicated. Patient and glazier helper team agree with plan. 2. Hypomagnesemia Grade 2. Magnesium is 1.0 today, asymptomatic, we will replete with Iv Now, followed with Oral magnesium to take home. CHRONIC 1. Hypertension. Controlled on spironolactone 2. Hypercholesterolemia. Controlled on simvastatin 3. Hypothyroidism. Controlled on levothyroxine PLAN 1. Auditory test to be done today 2. Replete Magnesium 2g IV x1 Now. Patient to go home with mag oxide 400mg POx7 days. Rx given today 3. CBC,CMP, Mag, on Thursday 4. Hold Cisplatin treatment for today. We will recheck counts on Thursday and proceed accordingly. Plan discussed with Dr. Lange 5. Patient to RTC per protocol, and to contact cancer center with any issues or concerns. -Education, patient instructed to go to ER immediately and or call Clinic if any Shortness of Breath, Temp >/=100.4, fevers, chills, cardiac type chest pain , bleeding, excessive bruising, headaches, blurry vision, dizziness, abdominal pain, difficulty swallowing, and pain unrelieved by medication. TIME SPENT: 45 minutes 40 > minutes includes but not limited to discussion, counselling and co-ordination~ of care. Discussion with other health care providers, record review, review of lab work, diagnostic tests. Plan discussed extensively with patient and family. All the questions answered today. Thank you for the opportunity to be involved in the care of Ms. Didi Knowles. Billing Level: Return visit 5 LILY IRVING, ONC Jan 27, 2018 09:28
[2018-01-27] MEDS: HEPARIN FLSH (PORT) 500 UN/5ML IVP PRN (11:59)
[2018-02-01] MEDS: LIDOCAINE/SOD BICARB 8.4% SYR ID PRN (09:06)
[2018-02-01] MEDS: NS(*) 0.9% 1000 ML BAG 1,000 ML IV PRN (09:07)
[2018-02-01 09:08] VITALS: BP 117/57
[2018-02-01] MEDS: PALONOSETRON 0.25 MG/5 ML VIAL IVP PRN (10:11)
[2018-02-01] MEDS: NS(*) 0.9% 500 ML BAG 500 ML IV PRN (10:17)
[2018-02-01] MEDS: FOSAPREPITANT DIM 150 MG/5 ML 150 MG in NS(*) 0.9% 250 ML BAG 245 ML IVPB PRN (10:56)
--- NOTE | 2018-02-01 14:08 | Oncology Progress Note ---
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 Procedure/Surgical History: hysterectomy in 2017, right hand surgical procedure in 2001, right knee replacement in 07/2016 and tonsillectomy. Treatment Treatment 2018 -s/p Six cycles of carboplatin and paclitaxel with expected, but at times fairly significant, toxicity. - 2018 XRT 02/01/2018 Cisplatin C1/D1 plus 7 out of 23 XRT HPI HPI Ms. 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 Dx: 06/25/2017. S/p six cycles of carboplatin and paclitaxel with expected, but at times fairly significant, toxicity. She is currently receiving XRT. Patient presents today consistent to today, to start of care cisplatin treatment. We were not able to start Cisplatin last week due to low counts. However, today patient feels great, and the lab work it's within acceptable parameters. She reports no issues or complain. All health status within her usual baseline. Living Conditions Lives with Significant other. Diagnostic Studies Result Diagram: 02/01/1891602/01/18916 [facility] Patient History: FH: diabetes mellitus FATHER BROTHER OR SISTER FH: heart disease FATHER BROTHER OR SISTER Social/Occupational History Social History: Social History This is a 62 Yr old White female, she is S Single and has [] Children Hx Smoking: No Smoking Status: Never Smoker Exposure to Second Hand Smoke?: No Allergies & Medications Allergies: Coded Allergies: Penicillins (Verified Allergy, Intermediate, HIVES, 07/08/16) celecoxib (Verified Allergy, Unknown, HIVES, 09/24/16) Home Meds Active Scripts Lorazepam (ATIVAN) 0.5 Mg Tablet, 0.5 MG PO Q4-6H Y for NAUSEA for 30 Days, #30 TAB 1 Refill Prov:[facility] ONC 08/28/17 Lidocaine/Prilocaine (LIDOCAINE-PRILOCAINE CREAM) 30 Gm Cream..g., 30 GM TP PRN , #1 G 1 Refill Prov:DOMINGO VARGAS [facility], ONC 08/28/17 Prochlorperazine Maleate (Compazine) 10 Mg Tablet, 10 MG PO Q6H, #30 TAB Prov:DOMINGO VARGAS [facility] ONC 08/28/17 Ondansetron (ZOFRAN ODT) 4 Mg Tab.rapdis, 8 MG PO Q8H, #30 TAB.SUMMER 1 Refill Prov:[facility] ON[facility] 08/28/17 Reported Medications Magnesium Oxide (Mag-Oxide) 200 Mg Magnesium Tablet, 400 MG PO DAILY 02/01/18 Metformin Hcl (METFORMIN HCL) 500 Mg Tablet, 1 TAB PO BID, TAB 09/30/17 Cetirizine Hcl (ZYRTEC) 10 Mg Tablet, 10 MG PO QDAY, TAB 09/08/17 Spironolactone (SPIRONOLACTONE) 25 Mg Tablet, 25 MG PO DAILY, TAB 08/11/17 Aspirin (ASPIR 81) 81 Mg Tablet.dr, 81 MG PO QDAY, TAB 09/24/16 Losartan Potassium (LOSARTAN POTASSIUM) 100 Mg Tablet, 100 MG PO QDAY 07/08/16 Levothyroxine Sodium (LEVOTHYROXINE SODIUM) 88 Mcg Tablet, 88 MCG PO QDAY 07/08/16 Simvastatin (SIMVASTATIN) 40 Mg Tablet, 40 MG PO HS, TAB 07/08/16 Discontinued Reported Medications [Magnesium] No Conflict Check, 1 TAB PO DAILY 02/01/18 Diphenhydramine Hcl (BENADRYL) 25 Mg Capsule, 50 MG PO BID, CAPSULE 09/08/17 Mecobalamin (B-12) 1,000 Mcg Tab.rapdis, 1000 MCG SL DIRECTED 08/11/17 Review of Systems Constitution: Denies Appetite/Weight Change, Denies Fever/Chills/Sweating, Denies Recent Infection, Denies Other HEENT: No EARS: Tinnitus, No NOSE: Nasal Discharge, No THROAT: Sore Throat, No EYES: Dipolpia, No EARS: Hearing Problems, No NOSE: Epistaxis, No THROAT: Mouth Ulcers, No EYES: Vision Change, No OTHER Respiratory: No Cough, No Expectoration, No Hemoptysis, No Shortness of Breath , No OTHER Cardiovascular: No Chest Pain, No Orthopnea, No Edema, No Palpitations, No OTHER Gastrointestinal: No Nausea, No Vomitting, No Diarrehea, No Constipation, No Heart Burn, No Swallowing Difficulties, No Abdominal Pain, No Other Gentiourinary: No Hematuria, No Dysuria, No Nocturia, No Other Musculoskeletal: No Muscle Pain, No Joint Pain, No Bone Pain, No Other Hematological: No Bleeding, No Weakness, No Enlarged Lyph Nodes, No Bruising, Fatigue, No Other Skin: No Skin Rash, No Lumps, No Erythema, No Dry Skin, No Moist Skin, No Other Psychiatric: No Anxiety, No Depression, No Other Vital Signs Vital Signs Temperature: 98.9 Pulse: 77 BP Systolic: 117 BP Diastolic: 57 Respiratory Rate: 16 O2 SAT: 92 O2 Delivery: Height (feet) Height (inches) 63.00 Weight lb: 226 Weight oz: Weight Kg (Bebo): Pain: 0 ECOG -1 Physical Exam General: Looks Stable, Well Developed, Well Nourished, Other (in No acute Distress) HEENT: HEAD:Atraumatic Lungs: Clear to Auscultation, Percussion Bilaterally Heart: Regular Rate and Rhythm, No Gallops, No Murmurs, No Clicks, No Rubs, No Other Abdomen: Soft and Nontender, No Hepatosplenomegaly, No Masses, No Other Extremities: No Cyanosis, No Clubbing, No Edema, No Other Lymphatics: No Peripheral Lymphadenopathy, No Other Psychiatric: Mood appears normal, Affect appears normal Skin: No Skin Rashes, No Bruising, No Purpura, No Moist Desquamation, No Dry Desquamation, No Errythema, No Mild Errythema, No Moderate Errythema, No Severe Errythema, No Induration, No Other Breast: No No Masses, No No Nipple Discharge, No No Skin Changes, No Other Assessment and Plan Assessment and Plan Ms. 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 Dx: 06/25/2017. S/p six cycles of carboplatin and paclitaxel with expected, but at times fairly significant, toxicity. She is currently receiving XRT. Plan is to initiate cisplatin. DIAGNOSTIC DATA WBC is 2.7; hemoglobin 10.5; hematocrit 30.3; platelet count 122; ANC 1.9; chem panel within normal limits except Magnesium at 1.1, 1. 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 Dx : 06/25/2017. S/p six cycles of carboplatin and paclitaxel with expected, but at times fairly significant, toxicity. She is currently receiving 02/01 XRT to the pelvis. Planis to proceed with today 02/01/18, 2. Hypomagnesemia Grade 2. Magnesium is 1.0 today, asymptomatic, we will replete with Iv Now, followed with Oral magnesium to take home.plus post hydration to contain Mg supplement. 3. Mild hearing Loss. As revealed by Auditory test done on 01/27/2018. She reports no issues with her hearing. Recommend use ear protection and avoid noisy environments. CHRONIC 1. Hypertension. Controlled on spironolactone 2. Hypercholesterolemia. Controlled on simvastatin 3. Hypothyroidism. Controlled on levothyroxine PLAN 1.Proceed with first dose of cisplatin treatment as planned 2. Replete Magnesium 1g IV x1 Now. Patient to go home with mag oxide 400mg POx30 days. Rx refil today 3. CBC,CMP, Mag, on Thursday and possible replete mag and hydration 4. Patient to RTC per protocol, and to contact cancer center with any issues or concerns. 5. Weekly labs to include . CBC,CMP, Mag, -Education, patient instructed to go to ER immediately and or call Clinic if any Shortness of Breath, Temp >/=100.4, fevers, chills, cardiac type chest pain , bleeding, excessive bruising, headaches, blurry vision, dizziness, abdominal pain, difficulty swallowing, and pain unrelieved by medication. TIME SPENT: 25 minutes 20 > minutes includes but not limited to discussion, counselling and co-ordination~ of care. Discussion with other health care providers, record review, review of lab work, diagnostic tests. Plan discussed extensively with patient and family. All the questions answered today. Thank you for the opportunity to be involved in the care of Ms. Didi Knowles. Billing Level: Return visit 4 LILY IRVING, ONC Feb 01, 2018 14:08
--- NOTE | 2018-02-01 15:52 | Medical Nutrition Therapy ---
Nutrition Anthropometrics Height (Inches): 63.00 Height (Calculated Centimeters: 160.0200 Weight (Pounds): 216 (patient states usual weight 230lbs) Hx Weight Loss: Yes (approx 10lb wt loss in 2 months) Dietary Referral Nutritional Education Nutrition Education Topic: Other (Nutrition during Cancer Treatment ) Learning Readiness: Interested Teaching Methods: Discussion, Handout Response to Teaching: Verbalize understanding Teaching Recipient: Patient Nutrition Counseling: Provided and reviewed handout on Nutrition during cancer treatment, reviewed section on loss of appetite and encourage her to review other sections if she experiences other nutrition impact symptoms Nutrition Monitoring & Eval Nutrition Goals: Eat 75-100% Meal, Drink > 2 liters/day Nutritional Goals Comment: no further weight loss, encouraged intake even if appetite is poor Nutrition Monitoring: Patient states she has poor appetite, less than usual intake, altered food tastes and some food smells bother her, she is working in the AMs. I will monitor nutrition impact symptoms and provide additional education and recommendations as needed RD Patient Assessment Time: [address] Assessment Type: RD Education Nutritional Comment: Encourage patient to call or let RN know if she would like to discuss any nutrition issues with me. SHIELA GRAF RDN, LD Feb 01, 2018 15:52
[2018-02-01 16:45] VITALS: BP 122/60
[2018-02-03 10:52] VITALS: BP 125/47
[2018-02-03 11:09] LABS: PLATELET COUNT, AUTOMATED 131 K/uL (150-450)
[2018-02-06 15:01] LABS: PLATELET COUNT, AUTOMATED 108 K/uL (150-450)
[2018-02-06 15:20] VITALS: BP 129/70
[2018-02-06] MEDS: LIDOCAINE/SOD BICARB 8.4% SYR ID PRN (15:20)
[2018-02-06] MEDS: HEPARIN FLSH (PORT) 500 UN/5ML IVP PRN (15:20)
[2018-02-06] MEDS: NS(*) 0.9% 1000 ML BAG 1,000 ML IV PRN (15:20)
[2018-02-06 15:55] VITALS: BP 136/73
[~2018-02-09] VITALS: Ht 160 cm; Wt 97.3 kg
[~2018-02-09 08:27] MED LIST changes: +ALTEPLASE RECOMB 2 MG VIAL IVP PRN; +CARBOPLATIN IVPB ONE; +CISPLATIN IVPB ONE; +DEXAMETHASONE SOD(*) 10MG/ML 10 MG in NS(*) 0.9% 50 ML BAG 50 ML IVP PRN; +DEXTROSE 5%(*) 100 ML BAG 100 ML IVPB PRN; +KCL IV PRN; +MAGN200T3 PO; +MAGNESIUM PO; +MAGNESIUM SUL IV PRN; +MAGNESIUM SUL* 2 GM/50 ML IVPB 50 ML IVPB ONE; +MAGNESIUM SUL/D5W* 1 GM/100 ML 100 ML IVPB ONE; +NS 0.9% IVPB ONE; +NS(*) 0.9% 100 ML BAG 100 ML IVPB PRN; +NS(*) 0.9% 1000 ML BAG 1,000 ML IV PRN; +PACLITAXEL IVPB ONE; +WATER FOR INJ,STERILE 20 ML IVP PRN; +[UNRECOGNIZED DRUG - OTHER] IV PRN
[2018-02-09 08:41] VITALS: BP 110/90
[2018-02-09] MEDS: NS(*) 0.9% 1000 ML BAG 1,000 ML IV PRN (08:50)
[2018-02-09] MEDS ORDERED: MAGNESIUM SUL* 4 GM/100 ML BAG 100 ML IVPB ONE (09:35)
[2018-02-09] MEDS ORDERED: MAGN200T3 PO (10:01)
[2018-02-09 12:02] VITALS: BP 111/83
[2018-02-09] MEDS: HEPARIN FLSH (PORT) 500 UN/5ML IVP PRN (12:04)
--- NOTE | 2018-02-09 12:06 | Oncology Progress Note ---
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 Procedure/Surgical History: hysterectomy in 2017, right hand surgical procedure in 2001, right knee replacement in 07/2016 and tonsillectomy. Treatment 2018 -s/p Six cycles of carboplatin and paclitaxel with expected, but at times fairly significant, toxicity. - 2017 XRT 02/01/2018 Cisplatin C1/D1 plus 7 out of 23 XRT 02/09/2018 Cisplatin held due to platelets in the 70s. Treatment Treatment 2018 -s/p Six cycles of carboplatin and paclitaxel with expected, but at times fairly significant, toxicity. - 2018 XRT 02/01/2018 Cisplatin C1/D1 plus 7 out of 23 XRT 02/09/2018 Cisplatin held due to platelets in the 70s. HPI HPI Ms. 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 Dx: 06/25/2017. S/p six cycles of carboplatin and paclitaxel with expected, but at times fairly significant, toxicity. She is currently receiving XRT. Patient presents to Cancer Center today for her weekly cisplatin treatment. We were not able to administer Cisplatin today due to low counts platelet of 74K. patient feels great. She reports no issues or complain. All health status within her usual baseline. patient is awake, alert, oriented to time, place, date and person. Hemodynamically stable and afebrile. Diagnostic Studies Result Diagram: 02/09/18 0845 02/09/18 0845 [facility] Patient History: FH: diabetes mellitus FATHER BROTHER OR SISTER FH: heart disease FATHER BROTHER OR SISTER Social/Occupational History Social History: Social History This is a 62 Yr old White female, she is S Single and has [] Children Hx Smoking: No Smoking Status: Never Smoker Exposure to Second Hand Smoke?: No Allergies & Medications Allergies: Coded Allergies: Penicillins (Verified Allergy, Intermediate, HIVES, 07/08/16) celecoxib (Verified Allergy, Unknown, HIVES, 09/24/16) Home Meds Active Scripts Magnesium Oxide (Mag-Oxide) 200 Mg Magnesium Tablet, 400 MG PO 1-2XD, #30 Prov:LILY [facility], ONC 02/09/18 Lorazepam (ATIVAN) 0.5 Mg Tablet, 0.5 MG PO Q4-6H Y for NAUSEA for 30 Days, #30 TAB 1 Refill Prov:DOMINGO VARGAS [facility]-, ONC 08/28/17 Lidocaine/Prilocaine (LIDOCAINE-PRILOCAINE CREAM) 30 Gm Cream..g., 30 GM TP PRN , #1 G 1 Refill Prov:DOMINGO VARGAS [facility]-, ONC 08/28/17 Prochlorperazine Maleate (Compazine) 10 Mg Tablet, 10 MG PO Q6H, #30 TAB Prov:DOMINGO VARGAS [facility], ONC 08/28/17 Ondansetron (ZOFRAN ODT) 4 Mg Tab.rapdis, 8 MG PO Q8H, #30 TAB.SUMMER 1 Refill Prov:DOMINGO VARGAS [facility]-, ONC 08/28/17 Reported Medications Metformin Hcl (METFORMIN HCL) 500 Mg Tablet, 1 TAB PO BID, TAB 09/30/17 Cetirizine Hcl (ZYRTEC) 10 Mg Tablet, 10 MG PO QDAY, TAB 09/08/17 Spironolactone (SPIRONOLACTONE) 25 Mg Tablet, 25 MG PO DAILY, TAB 08/11/17 Aspirin (ASPIR 81) 81 Mg Tablet.dr, 81 MG PO QDAY, TAB 09/24/16 Losartan Potassium (LOSARTAN POTASSIUM) 100 Mg Tablet, 100 MG PO QDAY 07/08/16 Levothyroxine Sodium (LEVOTHYROXINE SODIUM) 88 Mcg Tablet, 88 MCG PO QDAY 07/08/16 Simvastatin (SIMVASTATIN) 40 Mg Tablet, 40 MG PO HS, TAB 07/08/16 Review of Systems Constitution: Denies Appetite/Weight Change, Denies Fever/Chills/Sweating, Denies Recent Infection, Denies Other HEENT: No EARS: Tinnitus, No NOSE: Nasal Discharge, No THROAT: Sore Throat, No EYES: Dipolpia, No EARS: Hearing Problems, No NOSE: Epistaxis, No THROAT: Mouth Ulcers, No EYES: Vision Change, No OTHER Respiratory: No Cough, No Expectoration, No Hemoptysis, No Shortness of Breath , No OTHER Cardiovascular: No Chest Pain, No Orthopnea, No Edema, No Palpitations, No OTHER Gastrointestinal: No Nausea, No Vomitting, Diarrehea (on immodium), No Constipation, No Heart Burn, No Swallowing Difficulties, No Abdominal Pain, No Other Gentiourinary: No Hematuria, No Dysuria, No Nocturia, No Other Musculoskeletal: No Muscle Pain, No Joint Pain, No Bone Pain, No Other Hematological: No Bleeding, No Weakness, No Enlarged Lyph Nodes, No Bruising, Fatigue, No Other Skin: No Skin Rash, No Lumps, No Erythema, No Dry Skin, No Moist Skin, No Other Psychiatric: No Anxiety, No Depression, No Other Vital Signs Vital Signs Temperature: 98.6 Pulse: 72 BP Systolic: 111 BP Diastolic: 83 Respiratory Rate: 16 O2 SAT: 95 O2 Delivery: Height (feet) Height (inches) 63.00 Weight lb: 216 Weight oz: Weight Kg (Bebo): Pain: 0 Physical Exam General: Looks Stable, Well Developed, Well Nourished, Other (in No acute Distress) HEENT: HEAD:Atraumatic Lungs: Clear to Auscultation, Percussion Bilaterally Heart: Regular Rate and Rhythm, No Gallops, No Murmurs, No Clicks, No Rubs, No Other Abdomen: Soft and Nontender, No Hepatosplenomegaly, No Masses, No Other Extremities: No Cyanosis, No Clubbing, No Edema, No Other Lymphatics: No Peripheral Lymphadenopathy, No Other Psychiatric: Mood appears normal, Affect appears normal Skin: No Skin Rashes, No Bruising, No Purpura, No Moist Desquamation, No Dry Desquamation, No Errythema, No Mild Errythema, No Moderate Errythema, No Severe Errythema, No Induration, No Other Breast: No No Masses, No No Nipple Discharge, No No Skin Changes, No Other Assessment and Plan Assessment and Plan Ms. Didi Benson, is a 62 year old woman who has Endometrioid adenocarcinoma with squamous differentiation, Grade 2, deeply invasive in the myometrium and with lymphatic embolization, involving the cervical stroma. 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 Dx: 06/25/2017. S/p six cycles of carboplatin and paclitaxel with expected, but at times fairly significant, toxicity. She is currently receiving XRT. Plan was to proceed with C2/D1 cisplatin, unfortunately labs not within acceptable parameters. We will hold today's dose. DIAGNOSTIC DATA All within limits except platelet count of 75K. See [employer]. 1. 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 Dx : 06/25/2017. S/p six cycles of carboplatin and paclitaxel with expected, but at times fairly significant, toxicity. She is currently receiving XRT to the pelvis. We will hold cisplatin admin today 2. Hypomagnesemia Grade 2. Magnesium is 1.3 today, asymptomatic, we will replete with Iv Now, followed with Oral magnesium to take home.plus post hydration to contain Mg supplement. 3. Mild hearing Loss. As revealed by Auditory test done on 01/27/2018. She reports no issues with her hearing. Recommend use ear protection and avoid noisy environments. CHRONIC 1. Hypertension. Controlled on spironolactone, and losartan potassium 100mg Po daily 2. Hypercholesterolemia. Controlled on simvastatin 3. Hypothyroidism. Controlled on levothyroxine 4. Diarrhea. controlled, she continues to take Imodium after each BM. PLAN 1.Hold cisplatin until counts recover, Dr. Lange aware. 2. Replete Magnesium 4g IV x1 Now. Patient to go continue taking PO Mag oxide 400mg BID POx30 days. Rx refil today 3. CBC,CMP, Mag, on Thursday and possible replete mag and hydration 4. Patient to RTC per protocol, and to contact cancer center with any issues or concerns. 5. Weekly labs to include . CBC,CMP, Mag, 6. Patient may take Mag oxide OTC dialy. -Education, patient instructed to go to ER immediately and or call Clinic if any Shortness of Breath, Temp >/=100.4, fevers, chills, cardiac type chest pain , bleeding, excessive bruising, headaches, blurry vision, dizziness, abdominal pain, difficulty swallowing, and pain unrelieved by medication. TIME SPENT: 20 minutes 1 5> minutes includes but not limited to discussion, counselling and co-ordination~ of care. Discussion with other health care providers, record review, review of lab work, diagnostic tests. Plan discussed extensively with patient and family. All the questions answered today. Thank you for the opportunity to be involved in the care of Ms. Didi Knowles. Billing Level: Return visit 3 LILY IRVING, ONC Feb 09, 2018 12:06
== END 2018-02-10 ==
LOC: ONC 08:27
PROVIDERS: ATTEND Internal Medicine Medical Oncology
DX: Z51.11 Encounter for antineoplastic chemotherapy (principal); C54.1 Malignant neoplasm of endometrium; G62.9 Polyneuropathy, unspecified; R53.83 Other fatigue; R11.0 Nausea; Z92.21 Personal history of antineoplastic chemotherapy; Z79.899 Other long term (current) drug therapy; R50.9 Fever, unspecified; E86.0 Dehydration
CPT/HCPCS: 36415; 36591; 83735; 84100; 85025; 85027; 96360; 96361; 96365; 96366; 96367; 96375; 96413; 96415; 96417; 99212; J1100; J1200; J1453; J1642; J2469; J3475; J3480; J7030; J7040; J7050; J9045; J9060; J9267; S0028; 82040; 82247; 82310; 82374; 82435; 82565; 82947; 84075; 84132; 84155; 84295; 84450; 84460; 84520

== ENCOUNTER 2018-02-16 09:00 | Outpatient (RCR) | payer OTHER ==
--- NOTE | 2017-12-22 10:04 | PT PLAN OF CARE ---
Physician: Pranay Christianson MD Patient is being seen: 1x/MO Therapist: Marge Leonard, PT, DPT, CLT Medical Diagnosis: Endometrioid Adenocarcinoma Treatment Diagnosis: Endometrioid Adenocarcinoma Date of Onset: 09/08/17 Date of Initial Evaluation: 09/08/17 Date patient was last seen: 12/22/17 Number of treatments: 4 Number of cancellations/No shows: 0 INTERVENTIONS: Manual Therapy/STM/MET Strengthening/condition Ice/Heat Range of Motion Spinal Stabilization Ultrasound Stretching Iontophoresis Neuromuscular Re-ed Closed Chain Program Electrical Stim Posture/Body mechanics Gait Trg/Balance Trg Biofeedback Home Exercise Program Mech./Manual Traction Therapeutic Activities Pelvic Floor GOALS: In 3 MO pt will maintain ECOG performance status of grade 1 or less for improved oncological outcomes and improved mobility with ADL's. MET In 3 MO pt will maintain FACT-G of 80/108 for maintenance of well being status. MET In 6 MO pt will maintain ECOG performance status of grade 1 or less for improved oncological outcomes and improved mobility with ADL's. In 6 MO pt will maintain FACT-G of 80/108 for maintenance of well being status. PATIENT'S GOAL: Minimize side-effects and maintain function with ADL's. Status of Patient's Goals: 2/4 Goals MET Patient Compliance: Good Prognosis: Good Reasons for continuing therapy: Didi is to finish with chemotherapy intervention today following completion of her last cycle. Upon completion pt is to initiate external beam radiation followed by internal radiation. Pt received education on physical side-effects of radiation treatment. At this time pt shows excellent progress with maintenance of function with lingering deficits post oncology intervention including decreased hip and quad strength. Pt also has reports of neuropathy with PT maintenance of function. Pt has been started on independent strengthening program as well as preventative exercises for complications with radiation and will be re-assessed in 1 month for continuation of treatment. Posture: Unremarkable. ROM: LE ROM full without pain Strength: LE MMT: Hip: Flexion/Ext: B 4+/5, Abd/Add: B 5/5, Knee: Flexion: B 5/5 , Ext: R 4/5, L 4+/5, Ankle: PF: B 5/5, DF B 5/5. Mobility: ECOG Performance Status: Grade 0 Outcome Measures: FACT-G (EVAL): PWB: , SWB: , EWB: , FWB: , Total: 89/108. FACT-G 11/26/17: PWB: , SWB: , EWB: , FWB: , Total: 92/ 108. FACT-G 12/22/17: PWB: , SWB: , EWB: , FWB: , Total: 95/ 108. If you have any questions or concerns, please feel free to contact me at . Thank you, Marge Leonard, PT, DPT, CLT MTDD
[~2018-02-16 09:00] MED LIST changes: -ALTEPLASE RECOMB 2 MG VIAL IVP PRN; -CARBOPLATIN IVPB ONE; -CISPLATIN IVPB ONE; -DEXAMETHASONE SOD(*) 10MG/ML 10 MG in NS(*) 0.9% 50 ML BAG 50 ML IVP PRN; -DEXTROSE 5%(*) 100 ML BAG 100 ML IVPB PRN; -KCL IV PRN; -MAGNESIUM SUL IV PRN; -MAGNESIUM SUL* 2 GM/50 ML IVPB 50 ML IVPB ONE; -MAGNESIUM SUL/D5W* 1 GM/100 ML 100 ML IVPB ONE; -NS 0.9% IVPB ONE; -NS(*) 0.9% 100 ML BAG 100 ML IVPB PRN; -NS(*) 0.9% 1000 ML BAG 1,000 ML IV PRN; -PACLITAXEL IVPB ONE; -WATER FOR INJ,STERILE 20 ML IVP PRN; -[UNRECOGNIZED DRUG - OTHER] IV PRN
--- NOTE | 2018-02-16 11:17 | PT PLAN OF CARE ---
Physician: AUDRA Tinoco Patient is being seen: 1-2x/MO Therapist: Marge Leonard, PT, DPT, CLT Medical Diagnosis: Endometrioid Adenocarcinoma Treatment Diagnosis: Endometrioid Adenocarcinoma Date of Onset: 09/08/17 Date of Initial Evaluation: 09/08/17 Date patient was last seen: 02/16/18 Number of treatments: 4 Number of cancellations/No shows: 0 INTERVENTIONS: Manual Therapy/STM/MET Strengthening/condition Ice/Heat Range of Motion Spinal Stabilization Ultrasound Stretching Iontophoresis Neuromuscular Re-ed Closed Chain Program Electrical Stim Posture/Body mechanics Gait Trg/Balance Trg Biofeedback Home Exercise Program Mech./Manual Traction Therapeutic Activities Pelvic Floor GOALS: In 3 MO pt will maintain ECOG performance status of grade 1 or less for improved oncological outcomes and improved mobility with ADL's. MET In 3 MO pt will maintain FACT-G of 80/108 for maintenance of well being status. MET In 6 MO pt will maintain ECOG performance status of grade 1 or less for improved oncological outcomes and improved mobility with ADL's. In 6 MO pt will maintain FACT-G of 80/108 for maintenance of well being status. PATIENT'S GOAL: Minimize side-effects and maintain function with ADL's. Status of Patient's Goals: 2/4 Goals MET Patient Compliance: Good Prognosis: Good Reasons for continuing therapy: Gricelda shows good progress with maintenance of function with minimal side-effects from chemo or external beam radiation. Pt is to start internal beam radiation on February 26 and was educated about physical side effects. Pt initiated pelvic floor activation exercises for preventative treatment with success. Neuropathy remains in the L hand>R, but has not increased and is improving with HEP exercises. PT to follow up with pt following completion of treatment at the end of February to asses need for rehabilitation into survivorship. Posture: Unremarkable. ROM: LE ROM full without pain Strength: LE MMT: Hip: Flexion/Ext: B 4+/5, Abd/Add: B 5/5, Knee: Flexion: B 5/5 , Ext: R 4/5, L 4+/5, Ankle: PF: B 5/5, DF B 5/5. Mobility: ECOG Performance Status: Grade 0 Outcome Measures: FACT-G (EVAL): PWB: , SWB: , EWB: , FWB: , Total: 89/108. FACT-G 11/26/17: PWB: , SWB: , EWB: , FWB: , Total: 92/ 108. FACT-G 12/22/17: PWB: , SWB: , EWB: , FWB: , Total: 95/ 108. FACT-G 02/16/18: PWB: , SWB: 25.02/06, EWB: , FWB: , Total: 97.7/ 108 If you have any questions or concerns, please feel free to contact me at . Thank you, Marge Leonard, PT, DPT, CLT MTDD
== END 2018-03-17 ==
LOC: PT 09:00
PROVIDERS: ATTEND Internal Medicine Hematology
DX: C54.1 Malignant neoplasm of endometrium (principal); R20.2 Paresthesia of skin; Z96.651 Presence of right artificial knee joint

== ENCOUNTER 2018-02-22 11:00 | Outpatient (RCR) | payer OTHER | END 2018-02-28 | LOC: RAON 11:00 | PROVIDERS: ATTEND Radiology Radiation Oncology | DX: Z51.0 Encounter for antineoplastic radiation therapy (principal); C54.1 Malignant neoplasm of endometrium; E78.00 Pure hypercholesterolemia, unspecified; I10 Essential (primary) hypertension; E07.9 Disorder of thyroid, unspecified; Z79.82 Long term (current) use of aspirin; Z79.899 Other long term (current) drug therapy; Z92.21 Personal history of antineoplastic chemotherapy | CPT/HCPCS: 77280; 77290; 77300; 77301; 77336; 77338; 77386; 99211; 99212 ==

== ENCOUNTER 2018-03-31 07:00 | Outpatient (RCR) | payer OTHER ==
[~2018-03-31 07:00] MED LIST changes: -HYDR-4308 PO; +HYDR-654 PO; -LOSA100T67 PO; +LOSA100T69 PO; -METF-411 PO; +METF-450 PO
== END 2018-04-23 07:01 | disposition home or self-care (01) ==
LOC: SPU 07:00
PROVIDERS: ATTEND Internal Medicine Medical Oncology
DX: Z02.9 Encounter for administrative examinations, unspecified (principal)

== ENCOUNTER 2018-05-11 12:50 | Outpatient (RCR) | payer OTHER ==
[2018-02-11 14:55] VITALS: BP 108/54
[2018-02-11] MEDS: NS(*) 0.9% 1000 ML BAG 1,000 ML IV PRN (15:05)
[2018-02-11] MEDS: LIDOCAINE/SOD BICARB 8.4% SYR ID PRN (15:25)
[2018-02-11] MEDS: HEPARIN FLSH (PORT) 500 UN/5ML IVP PRN (15:25)
[2018-02-11 16:14] VITALS: BP 110/57
[2018-02-16] MEDS: NS(*) 0.9% 1000 ML BAG 1,000 ML IV PRN (08:44)
[2018-02-16] MEDS: HEPARIN FLSH (PORT) 500 UN/5ML IVP PRN (08:45)
[2018-02-16 08:47] VITALS: BP 109/76
[2018-02-16] MEDS: NS(*) 0.9% 500 ML BAG 500 ML IV PRN (09:49)
--- NOTE | 2018-02-16 12:17 | Oncology Note ---
[facility] Patient History: FH: diabetes mellitus FATHER BROTHER OR SISTER FH: heart disease FATHER BROTHER OR SISTER Social/Occupational History Social History: Social History This is a 62 Yr old White female, she is S Single and has [] Children Hx Smoking: No Smoking Status: Never Smoker Exposure to Second Hand Smoke?: No Allergies & Medications Allergies: Coded Allergies: Penicillins (Verified Allergy, Intermediate, HIVES, 07/08/16) celecoxib (Verified Allergy, Unknown, HIVES, 09/24/16) Home Meds Active Scripts Magnesium Oxide (Mag-Oxide) 200 Mg Magnesium Tablet, 400 MG PO 1-2XD, #30 Prov:LILY IRVINGP-C, ONC 02/09/18 Lorazepam (ATIVAN) 0.5 Mg Tablet, 0.5 MG PO Q4-6H Y for NAUSEA for 30 Days, #30 TAB 1 Refill Prov:DOMINGO VARGAS [facility]-BC, ONC 08/28/17 Lidocaine/Prilocaine (LIDOCAINE-PRILOCAINE CREAM) 30 Gm Cream..g., 30 GM TP PRN , #1 G 1 Refill Prov:DOMINGO VARGAS [facility], ONC 08/28/17 Prochlorperazine Maleate (Compazine) 10 Mg Tablet, 10 MG PO Q6H, #30 TAB Prov:DOMINGO VARGAS [facility]-, ONC 08/28/17 Ondansetron (ZOFRAN ODT) 4 Mg Tab.rapdis, 8 MG PO Q8H, #30 TAB.SUMMER 1 Refill Prov:DOMINGO VARGAS [facility]-, ONC 08/28/17 Reported Medications Metformin Hcl (METFORMIN HCL) 500 Mg Tablet, 1 TAB PO BID, TAB 09/30/17 Cetirizine Hcl (ZYRTEC) 10 Mg Tablet, 10 MG PO QDAY, TAB 09/08/17 Spironolactone (SPIRONOLACTONE) 25 Mg Tablet, 25 MG PO DAILY, TAB 08/11/17 Aspirin (ASPIR 81) 81 Mg Tablet.dr, 81 MG PO QDAY, TAB 09/24/16 Losartan Potassium (LOSARTAN POTASSIUM) 100 Mg Tablet, 100 MG PO QDAY 07/08/16 Levothyroxine Sodium (LEVOTHYROXINE SODIUM) 88 Mcg Tablet, 88 MCG PO QDAY 07/08/16 Simvastatin (SIMVASTATIN) 40 Mg Tablet, 40 MG PO HS, TAB 07/08/16 Evaluation Date: February 16, 2018 Evaluation Time: 09:00 Chief Complaint Chief Complaint Cisplatin administration for 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 Procedure/Surgical History: hysterectomy in 2017, right hand surgical procedure in 2001, right knee replacement in 07/2016 and tonsillectomy. Treatment 2018 -s/p Six cycles of carboplatin and paclitaxel with expected, but at times fairly significant, toxicity. - 2017 XRT 02/01/2018 Cisplatin C1/D1 plus 7 out of XRT 02/09/2018 Cisplatin held due to platelets in the 70s. HPI HPI Ms. 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 Dx: 06/25/2017. S/p six cycles of carboplatin and paclitaxel with expected, but at times fairly significant, toxicity. She is currently receiving XRT. Patient presents to Cancer Center today for her weekly cisplatin treatment. this is the second time around that We are not able to administer Cisplatin due to low counts platelet of 51K. Patient reports 2-4 episodes of watery diarrhea x 2 days. She feels great otherwise. She reports no issues or complain. All health status within her usual baseline. patient is awake, alert, oriented to time, place, date and person. Hemodynamically stable and afebrile. Review of Systems Constitution: Denies Appetite/Weight Change, Denies Fever/Chills/Sweating, Denies Recent Infection, Denies Other HEENT: No EARS: Tinnitus, No NOSE: Nasal Discharge, No THROAT: Sore Throat, No EYES: Dipolpia, No EARS: Hearing Problems, No NOSE: Epistaxis, No THROAT: Mouth Ulcers, No EYES: Vision Change, No OTHER Respiratory: No Cough, No Expectoration, No Hemoptysis, No Shortness of Breath , No OTHER Cardiovascular: No Chest Pain, No Orthopnea, No Edema, No Palpitations, No OTHER Gastrointestinal: No Nausea, No Vomitting, Diarrehea (on immodium), No Constipation, No Heart Burn, No Swallowing Difficulties, No Abdominal Pain, No Other Gentiourinary: No Hematuria, No Dysuria, No Nocturia, No Other Musculoskeletal: No Muscle Pain, No Joint Pain, No Bone Pain, No Other Hematological: No Bleeding, No Weakness, No Enlarged Lyph Nodes, No Bruising, Fatigue, No Other Skin: No Skin Rash, No Lumps, No Erythema, No Dry Skin, No Moist Skin, No Other Psychiatric: No Anxiety, No Depression, No Other Vital Signs Vital Signs Temperature: 98.6 Pulse: 72 BP Systolic: 109 BP Diastolic: 76 Respiratory Rate: 16 O2 SAT: 93 O2 Delivery: Rair Height (feet) Height (inches) 63.00 Weight lb: 216 Weight oz: Weight Kg (Bebo): Pain: 0 ECOG-1 Physical Exam General: Looks Stable, Well Developed, Well Nourished, Other (in No acute Distress) HEENT: HEAD:Atraumatic Lungs: Clear to Auscultation, Percussion Bilaterally Heart: Regular Rate and Rhythm, No Gallops, No Murmurs, No Clicks, No Rubs, No Other Abdomen: Soft and Nontender, No Hepatosplenomegaly, No Masses, No Other Extremities: No Cyanosis, No Clubbing, No Edema, No Other Lymphatics: No Peripheral Lymphadenopathy, No Other Psychiatric: Mood appears normal, Affect appears normal Skin: No Skin Rashes, No Bruising, No Purpura, No Moist Desquamation, No Dry Desquamation, No Errythema, No Mild Errythema, No Moderate Errythema, No Severe Errythema, No Induration, No Other Breast: No No Masses, No No Nipple Discharge, No No Skin Changes, No Other Assessment and Plan Assessment and Plan Ms. 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 Dx: 06/25/2017. S/p six cycles of carboplatin and paclitaxel with expected, but at times fairly significant, toxicity. She is currently receiving XRT. Plan was to proceed with C2/D1 cisplatin, unfortunately labs not within acceptable parameters. We will hold today's dose. DIAGNOSTIC DATA All within limits except platelet count of 51K. See Rekoo. 1. 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 Dx : 06/25/2017. S/p six cycles of carboplatin and paclitaxel with expected, but at times fairly significant, toxicity. She is currently receiving XRT to the pelvis. We will hold cisplatin admin today 2. Hypomagnesemia Grade 2. Magnesium is 1.2 today, asymptomatic, we will replete with mag 4g Iv Now, followed with Oral 400 mg magnesium Po BID to take home.plus post hydration to contain Mg supplement. 3. Mild hearing Loss. As revealed by Auditory test done on 01/27/2018. She reports no issues with her hearing. Recommend use ear protection and avoid noisy environments. 4. Diarrhea x 2 days. send stool sample for c-diff for ova, and parasites. she is currently taking immodium. She usually gets minimum of 2BMS per day as a baseline. CHRONIC 1. Hypertension. Controlled on spironolactone, and losartan potassium 100mg Po daily 2. Hypercholesterolemia. Controlled on simvastatin 3. Hypothyroidism. Controlled on levothyroxine 4. Diarrhea. controlled, she continues to take Imodium after each BM. PLAN #1 Hold treatment today due to pancytopenia + platelets of 51K #2 administer 1L of normal saline +20 KCl X1 NOW #3 administer 4g of magnesium IV 1 now infused over 90 minutes #4 monitor for hypotension #5 start patient on levofloxacin 500 mg by mouth for 7 days #6 Bactrim DS one tab by mouth daily every Thursday and Thursday of 30 days #7 context of specimen before tree and sent for C. difficile #8 continue to take Imodium when necessary with each bowel movement and benign increased Mag- Ox site 2-400 mg by mouth twice a day 7 days #8 Patient to RTC per protocol, and to contact cancer center with any issues or concerns. #9 Weekly labs to include . CBC,CMP, Mag -Education, patient instructed to go to ER immediately and or call Clinic if any Shortness of Breath, Temp >/=100.4, fevers, chills, cardiac type chest pain , bleeding, excessive bruising, headaches, blurry vision, dizziness, abdominal pain, difficulty swallowing, and pain unrelieved by medication. TIME SPENT: 20 minutes 1 5> minutes includes but not limited to discussion, counselling and co-ordination~ of care. Discussion with other health care providers, record review, review of lab work, diagnostic tests. Plan discussed extensively with patient and family. All the questions answered today. Thank you for the opportunity to be involved in the care of Ms. Didi Knowles. Billing Level: Return visit 3 LILY IRVING-Marty, ONC Feb 16, 2018 12:17
[2018-02-16 14:50] VITALS: BP 124/60
[2018-02-22] MEDS: LIDOCAINE/SOD BICARB 8.4% SYR ID PRN (12:44)
[2018-02-22] MEDS: HEPARIN FLSH (PORT) 500 UN/5ML IVP PRN (14:36)
[2018-02-22 16:35] VITALS: BP 123/77
[2018-03-17 09:41] VITALS: BP 122/89
[2018-03-17 11:10] LABS: PLATELET COUNT, AUTOMATED 21 K/uL (150-450)
[2018-03-17] MEDS: HEPARIN FLSH (PORT) 500 UN/5ML IVP PRN (13:42)
[2018-03-17] MEDS: LIDOCAINE/SOD BICARB 8.4% SYR ID PRN (13:42)
--- NOTE | 2018-03-17 16:27 | ONCOLOGY FOLLOW UP NOTE ---
EVENT DATE: March 17, 2018 ADDENDUM: Labs returned today with a CBC showing pancytopenia with a platelet count of 16K. I was able to visit again with her in the infusion center to discuss. Her medication list has been reviewed in detail. Spironolactone could potentially be contributing, and I would query whether she could stop this. Otherwise, her cytopenias are likely due to her recent chemoradiation. I have recommended that she come in immediately if she has any bleeding (epistaxis, hematochezia, melena, hematuria). She agrees to do so. We will have her come in for weekly CBCs, and will transfuse as needed. Should her cytopenias persist much further, would consider bone marrow biopsy. All questions answered. 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 CHIEF COMPLAINT Fatigue. HISTORY OF PRESENT ILLNESS Ms. Knowles returns to clinic for a followup visit today. She is accompanied by loved ones. Since our last visit, she has completed adjuvant radiation therapy including brachytherapy with Dr. Eason. She did have to miss much of her concurrent cisplatin due to cytopenias, unfortunately. In any case, now that she is done with her treatment, she does report feeling slightly better as time goes by. She continues to deal with significant fatigue, however. She has had some bruising over her arms and legs. She denies fever. She has had no nausea per se, but she still has altered taste for foods, and it has been difficult to drink water and other liquids. She reports no abdominal pain and no changes in bladder habits. She was dealing with loose stools, but this has vastly improved since completing radiation therapy. For the most part, her mood has been good. She is back at work, but she does find that she is quite tired at the end of the day. She does feel that she is keeping up at work, however. REVIEW OF SYSTEMS Otherwise negative, and all systems were reviewed. PAST MEDICAL HISTORY 1. 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 2. Hypertension. 3. Hypercholesterolemia. 4. Hypothyroidism. PAST SURGICAL HISTORY 1. As above. 2. Status post a surgical procedure on her hand. 3. Status post tonsillectomy. 4. Status post knee surgery last year. ALLERGIES 1. CELEBREX which causes a rash. 2. PENICILLINS which cause hives. SOCIAL HISTORY Patient is a nonsmoker, and there is no history of illicit drug use or alcohol abuse. 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 FAMILY HISTORY Otherwise unremarkable. CURRENT MEDICATIONS 1. Magnesium oxide. 2. Ativan p.r.n. 3. Metformin. 4. Zyrtec. 5. Compazine p.r.n. 6. Zofran p.r.n. 7. Spironolactone 8. Aspirin. 9. Losartan. 10. Levothyroxine. 11. Simvastatin. 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 I had a good visit with Ms. Knowles and her loved ones today. She has completed adjuvant chemoradiation, most recently with brachytherapy with Dr. Eason in [place]. We discussed initially that, unfortunately, she had to miss the majority of the recommended concurrent weekly cisplatin as she was doing her radiation therapy. This was due mostly to cytopenias, but she has also been dealing with electrolyte abnormalities. In any case, our plan will be for her to return for repeat imaging three months after completion of radiation, and I will plan to see her back after her CT scan in mid to late May. I will have her go to the lab today. We need to follow up on her cytopenias as well as her electrolyte abnormalities. She will likely require ongoing supplementation of electrolytes, and we will get back to her with the results. I have also recommended that she begin physical therapy as she has not done so yet. She will need to find time in her work schedule for this to happen. We discussed other ongoing followup. She will follow up in Radiation Oncology with Dr. Marie in [place] with [facility]. She will also need to follow up with Gynecology, and she requests that this happen with Dr. Garcia in [place]. I would be more than happy to see her sooner if there are questions or concerns in the interim. The patient and her loved ones had several additional questions for me today, and I believe I answered all their questions to their satisfaction. I spent a total of 30 minutes of time [id number] with the patient today, and 25 minutes of this was spent in direct counseling and coordination of care. PEMA
[2018-03-24 16:32] VITALS: BP 122/76
[2018-03-24 16:59] LABS: PLATELET COUNT, AUTOMATED 14 K/uL (150-450)
[2018-03-25] MEDS: NS(*) 0.9% 500 ML BAG 500 ML IV PRN ×2 (14:41→17:34)
[2018-03-25 15:42] VITALS: BP 96/61
[2018-03-25 16:04] VITALS: BP 88/65
[2018-03-25] MEDS: HEPARIN FLSH (PORT) 500 UN/5ML IVP PRN (16:24)
[2018-03-25 16:34] VITALS: BP 112/55
[2018-03-25 17:35] VITALS: BP 122/50
[2018-03-25 18:06] LABS: PLATELET COUNT, AUTOMATED 58 K/uL (150-450)
[2018-03-29 16:08] VITALS: BP 125/60
[2018-04-05 15:40] VITALS: BP 144/68
[2018-04-05 16:03] LABS: PLATELET COUNT, AUTOMATED 46 K/uL (150-450)
[2018-04-20 13:56] VITALS: BP 138/83
[2018-04-27 12:59] VITALS: BP 209/81
[2018-04-27] MEDS: LIDOCAINE/SOD BICARB 8.4% SYR ID PRN (13:29)
[2018-04-27] MEDS: HEPARIN FLSH (PORT) 500 UN/5ML IVP PRN (13:30)
[2018-04-27 13:38] LABS: PLATELET COUNT, AUTOMATED 40 K/uL (150-450)
[2018-05-04 13:00] VITALS: BP 121/83
[2018-05-04 13:39] LABS: PLATELET COUNT, AUTOMATED 39 K/uL (150-450)
[~2018-05-11 12:50] MED LIST changes: +ACETAMINOPHEN 325 MG TAB PO ONE; +ALTEPLASE RECOMB 2 MG VIAL IVP PRN; +DEXTROSE 5%(*) 100 ML BAG 100 ML IVPB PRN; +HYDROCORTISONE 100 MG/2 ML IVP ONE; +KCL IV ONE; +MAGNESIUM SUL IVPB ONE; +MAGNESIUM SUL* 2 GM/50 ML IVPB 50 ML IVPB ONE; +MAGNESIUM SULF 4 GM/100 ML BAG 100 ML IVPB ONE; +NS 0.9% IV ONE; +NS 0.9% IVPB ONE; +NS(*) 0.9% 100 ML BAG 100 ML IVPB PRN; +NS(*) 0.9% 250 ML BAG 250 ML IVPB ONE; +WATER FOR INJ,STERILE 20 ML IVP PRN; +[UNRECOGNIZED DRUG - OTHER] IVPB ONE; +diphenhydrAMINE 25 MG CAP PO ONE; +diphenhydrAMINE 50 MG/ML VIAL IVP ONE
[2018-05-11 13:05] VITALS: BP 131/91
[2018-05-11 13:52] LABS: PLATELET COUNT, AUTOMATED 46 K/uL (150-450)
== END 2018-05-12 ==
LOC: SPU 12:50
PROVIDERS: ATTEND Internal Medicine Medical Oncology
DX: Z51.11 Encounter for antineoplastic chemotherapy (principal); C54.1 Malignant neoplasm of endometrium; G62.9 Polyneuropathy, unspecified; R53.83 Other fatigue; R11.0 Nausea; Z92.21 Personal history of antineoplastic chemotherapy; Z79.899 Other long term (current) drug therapy; R50.9 Fever, unspecified; E86.0 Dehydration; D61.818 Other pancytopenia
CPT/HCPCS: 36415; 36591; 83735; 84100; 85025; 85027; 85045; 86880; 86900; 86901; 87177; 87324; 87449; 96361; 96365; 96366; 96367; 96375; 99212; J1200; J1642; J1720; J3475; J3480; J7030; J7040; J7050; P9035; Q0163; 36430; 82040; 82247; 82310; 82374; 82435; 82565; 82947; 84075; 84132; 84155; 84295; 84450; 84460; 84520

== ENCOUNTER 2018-05-12 13:45 | Outpatient (RCR) | payer OTHER ==
--- NOTE | 2018-03-25 07:22 | PT PLAN OF CARE ---
Physician: AUDRA Tinoco Patient is being seen: 2x/Week Therapist: Marge Leonard, PT, DPT, CLT Medical Diagnosis: Endometrioid Adenocarcinoma Treatment Diagnosis: Endometrioid Adenocarcinoma Date of Onset: 09/08/17 Date of Initial Evaluation: 09/08/17 Date patient was last seen: 03/24/18 Number of treatments: 6 Number of cancellations/No shows: 0 INTERVENTIONS: Manual Therapy/STM/MET Strengthening/condition Ice/Heat Range of Motion Spinal Stabilization Ultrasound Stretching Iontophoresis Neuromuscular Re-ed Closed Chain Program Electrical Stim Posture/Body mechanics Gait Trg/Balance Trg Biofeedback Home Exercise Program Mech./Manual Traction Therapeutic Activities Pelvic Floor Treatment GOALS: In 3 MO pt will maintain ECOG performance status of grade 1 or less for improved oncological outcomes and improved mobility with ADL's. MET In 3 MO pt will maintain FACT-G of 80/108 for maintenance of well being status. MET In 6 MO pt will maintain ECOG performance status of grade 1 or less for improved oncological outcomes and improved mobility with ADL's. MET In 6 MO pt will maintain FACT-G of 80/108 for maintenance of well being status. MET Survivorship GOALS: In 4 weeks pt will improve strength as tested by MMT to >4/5 in all major muscle groups for return to PLOF wit ADL's and mobility. In 4 weeks pt will be compliant with independent HEP for maintenance of strength and endurance gains as well as for management of neuropathy for improved balance and functional mobility with ADL's. PATIENT'S GOAL: Minimize side-effects and maintain function with ADL's. Status of Patient's Goals: 4/4 Treatment Goals MET, 0/2 Survivorship Goals MET Patient Compliance: Good Prognosis: Good Reasons for continuing therapy: Following the completion of oncological intervention including both chemotherapy and radiation treatment, Didi reports that her main concern entering survivorship is fatigue with ADL's. 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 Rehabilitative physical therapy to assist for return to PLOF focusing on strength gains lost in the LE B as well as maximizing balance and fine motor coordination to cope with neuropathy. Pt showed good progress today initially with aerobic exercise to promote improved endurance. Posture: Unremarkable. ROM: LE ROM full without pain Strength: LE MMT EVAL: Hip: Flexion/Ext: B 4+/5, Abd/Add: B 5/5, Knee: Flexion: B 5/5, Ext: R 4/5, L 4+/5, Ankle: PF: B 5/5, DF B 5/5. LE MMT Survivorship: Hip: Flexion: R 4/5, L 4+/5, Ext: B 4/5, Abd/Add: B 5/5, Knee: Flexion: B 4+/5, Ext: R 4-/5, L 4/5, Ankle: PF: B 5/5, DF B 5/5. Mobility: ECOG Performance Status: Grade 1 Outcome Measures: FACT-G (EVAL): PWB: , SWB: , EWB: , FWB: , Total: 89/108. FACT-G 11/26/17: PWB: 25/, SWB: , EWB: , FWB: , Total: 92/108. FACT-G 12/22/17: PWB: 19/28, SWB: , EWB: , FWB: , Total: 95/108. FACT-G 02/16/18: PWB: 19/28, SWB: 25.7/, EWB: 20, FWB: , Total: 87.7/108 Survivorship: FACT-G 03/24/18: PWB: 22/28, SWB: , EWB: , FWB: , Total: 90/108. If you have any questions, please feel free to contact me at [phone]. Thank you, Marge Leonard, PT, DPT, CLT MTDD
[2018-04-12 13:15] VITALS: BP 103/32
[2018-04-12 13:46] LABS: PLATELET COUNT, AUTOMATED 33 K/uL (150-450)
[2018-04-13 12:56] VITALS: BP 100/55
[2018-04-13 15:21] VITALS: BP 98/60
[2018-04-20 14:25] LABS: PLATELET COUNT, AUTOMATED 53 K/uL (150-450)
[~2018-05-12 13:45] MED LIST changes: -ACETAMINOPHEN 325 MG TAB PO ONE; +HEPARIN FLSH (PORT) 500 UN/5ML IVP PRN; -HYDROCORTISONE 100 MG/2 ML IVP ONE; -KCL IV ONE; +LIDOCAINE/SOD BICARB 8.4% SYR ID PRN; -LOSA100T69 PO; +LOSA100T75 PO; -MAGNESIUM SUL IVPB ONE; -MAGNESIUM SULF 4 GM/100 ML BAG 100 ML IVPB ONE; -NS 0.9% IV ONE; -NS 0.9% IVPB ONE; +NS(*) 0.9% 1000 ML BAG 1,000 ML IV ONE; -NS(*) 0.9% 250 ML BAG 250 ML IVPB ONE; +NS(*) 0.9% 500 ML BAG 500 ML IV PRN; -[UNRECOGNIZED DRUG - OTHER] IVPB ONE; -diphenhydrAMINE 25 MG CAP PO ONE; -diphenhydrAMINE 50 MG/ML VIAL IVP ONE
== END 2018-06-22 ==
LOC: PT 13:45
PROVIDERS: ATTEND Internal Medicine Hematology
DX: C54.1 Malignant neoplasm of endometrium (principal); R53.83 Other fatigue; R53.1 Weakness; Z96.651 Presence of right artificial knee joint; G62.9 Polyneuropathy, unspecified
CPT/HCPCS: 36415; 82040; 82247; 82310; 82374; 82435; 82565; 82947; 83735; 84075; 84100; 84132; 84155; 84295; 84450; 84460; 84520; 85025; J3475; J7030

== ENCOUNTER 2018-08-03 12:49 | Outpatient (RCR) | payer OTHER ==
[2018-05-18 13:30] VITALS: BP 136/88
[2018-05-18 14:05] LABS: PLATELET COUNT, AUTOMATED 49 K/uL (150-450)
[2018-06-08] MEDS: LIDOCAINE/SOD BICARB 8.4% SYR ID PRN (13:15)
[2018-06-08] MEDS: HEPARIN FLSH (PORT) 500 UN/5ML IVP PRN (13:15)
[2018-06-08 13:19] VITALS: BP 110/67
[2018-06-08 13:56] LABS: PLATELET COUNT, AUTOMATED 49 K/uL (150-450)
[2018-06-09 14:47] VITALS: BP 130/77
--- NOTE | 2018-06-16 23:12 | ONCOLOGY FOLLOW UP NOTE ---
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 CHIEF COMPLAINT Fatigue, bruising. INTERIM HISTORY Ms. Knowles returns to clinic for a followup visit today. She is accompanied by loved ones. She reports that in general since our last visit, she has continued to feel generally fatigued, and she has also had problems with bruising, particularly over the lower extremities. She has had regular laboratories drawn, and she is aware of her ongoing cytopenias. She reports no fever. Her appetite has been modest as food does not yet taste particularly normal. She reports no shortness of breath, chest pain, or cough. She has had some abdominal pain on and off, but no recent changes in bowel or bladder habits. She otherwise reports no abnormal bleeding beyond the bruising of her extremities. REVIEW OF SYSTEMS Otherwise negative, and all systems reviewed. PAST MEDICAL HISTORY 1. 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 2. Hypertension. 3. Hypercholesterolemia. 4. Hypothyroidism. PAST SURGICAL HISTORY 1. As above. 2. Status post a surgical procedure on her hand. 3. Status post tonsillectomy. 4. Status post knee surgery last year. ALLERGIES 1. CELEBREX which causes a rash. 2. PENICILLINS which cause hives. SOCIAL HISTORY Patient is a nonsmoker, and there is no history of illicit drug use or alcohol abuse. 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 FAMILY HISTORY Otherwise unremarkable. VITAL SIGNS Temperature is 98.4, blood pressure 130/77, heart rate is 78, respirations 16, oxygen saturation is 92% on room air. PHYSICAL EXAMINATION GENERAL: Patient is alert and oriented times three, in no apparent distress, sitting in the exam room chair. She is in good spirits and interactive. HEENT: Anicteric sclerae. NEUROLOGIC: Grossly nonfocal, and her gait is normal. EXTREMITIES: No edema, clubbing, or cyanosis. There is no erythema or tenderness to palpation. SKIN: Several bruises over the lower extremities, but no concerning rash or lesions. LABORATORY STUDIES Reviewed per the [facility] record. ASSESSMENT AND PLAN 1. Pancytopenia. I had a good visit with Ms. Knowles today. Symptomatically, she is doing fairly well, but she is having bruising as a result of her ongoing thrombocytopenia. She has had no problems with recurrent or severe infection. She does remain fatigued. We have given her bone marrow quite a bit of time to recover since her definitive adjuvant chemoradiation. I do think it would be reasonable at this point to have her go for a bone marrow biopsy to assess further the reason for her pancytopenia. As discussed, I would not recommend transfusion at this point, although I know the bruising is irritating for her. She has had no concerning bleeding symptoms, and this is encouraging. We discussed the bone marrow biopsy procedure in detail today, and she will need to go to [facility] to have this done, likely in Interventional Radiology. I will plan to see her back for followup after her marrow results are available. The patient had several additional questions for me today, and I believe I answered all of her questions to her satisfaction. 2. 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 Although she seems to be doing fairly well, she has developed some occasional abdominal pain that has worried her. I do think it would be reasonable to send her for reimaging with CT scan. This will be ordered today. We will review the results of her CT scan at the time of her followup as well. I spent a total of 30 minutes of time face to face with the patient today, and 25 minutes of this was spent in direct counseling and coordination of care. PEMA
--- NOTE | 2018-06-29 15:07 | NUR ---
SW faxed new FMLA and work release form back to pt's employer.
[2018-07-01] MEDS: LIDOCAINE/SOD BICARB 8.4% SYR ID PRN (10:45)
[2018-07-01] MEDS: HEPARIN FLSH (PORT) 500 UN/5ML IVP PRN (10:45)
--- NOTE | 2018-07-01 15:31 | RADIOLOGY IMAGING REPORT ---
FACILITY: [facility] PATIENT NAME: Didi Knowles : 1955 MR: [id number] V: [id number] EXAM DATE: ORDERING PHYSICIAN: VIKRAM MITCHELL TECHNOLOGIST: Location: [facility] Patient: Didi Knowles : 1955 Visit/Account:[id number] Date of Sevice: 07/01/2018 CT chest abdomen and pelvis W WO CONT HISTORY: Uterine cancer, follow-up ADDITIONAL HISTORY: None. TECHNIQUE: Pre and post administration of IV contrast axial images acquired through the chest abdome n and pelvis during the portal venous phase. Coronal and sagittal reformatting was also performed.Do se Lowering Technique One of the following dose optimization techniques was utilized in the performance of this exam: Autom ated exposure control; adjustment of the mA and/or kV according to the patient's size; or use of an i terative reconstruction technique. Specific details can be referenced in the facility's radiology C T exam operational policy. CONTRAST: 75 mL Isovue-370 COMPARISON: CTA chest September 24, [address] abdomen and pelvis August 26, 2017 FINDINGS: CHEST: Lungs/Pleura: There is a slight increase in linear stranding in the lung bases which may represent s mall amount of atelectasis and/or scarring. There is a small calcified granuloma in the right lower lobe Mediastinum/lymph nodes: Negative. Heart/vessels: There is an implanted right IJ port distal tip in the superior vena cava . This chronic elevation of the right hemidiaphragm Bones/soft tissues: No aggressive appearing bone lesions are seen ABDOMEN AND PELVIS: Hepatobiliary: Negative. Spleen: Negative. Pancreas: Negative. Adrenals: There is mild nodular thickening of the left adrenal gland that appears stable Kidneys ureters and bladder : Kidneys appear unremarkable. Bladder wall is mildly thickened Genitalia: Postsurgical changes from hysterectomy GI: There is diverticulosis left-sided colon although no CT evidence of acute diverticulitis Vessels/spaces/nodes: Negative. Bones/soft tissues: No aggressive appearing bone lesions are seen Additional findings: None pertinent. IMPRESSION: Postsurgical changes from hysterectomy. No evidence of metastatic disease within the chest abdomen o r pelvis Additional chronic findings as described Report Dictated By: Brittany Medina MD at 07/01/2018 2:05 PM Report E-Signed By: Brittany Medina MD at 07/01/2018 3:27 PM WSN:MARÍA ELENA
[~2018-08-03 12:49] MED LIST changes: +CYAN1TAB45 SL; -HEPARIN FLSH (PORT) 500 UN/5ML IVP PRN; +IOPAMIDOL 76% 50 ML INFUS BTL 100 ML ONE; -LIDOCAINE/SOD BICARB 8.4% SYR ID PRN; -MAGNESIUM SUL* 2 GM/50 ML IVPB 50 ML IVPB ONE; -NS(*) 0.9% 1000 ML BAG 1,000 ML IV ONE
[2018-08-03 13:01] LABS: PLATELET COUNT, AUTOMATED 56 K/uL (150-450)
== END 2018-08-15 ==
LOC: SPU 12:49
PROVIDERS: ATTEND Internal Medicine Medical Oncology
DX: C54.1 Malignant neoplasm of endometrium (principal); D61.818 Other pancytopenia; R53.81 Other malaise; I10 Essential (primary) hypertension; E78.00 Pure hypercholesterolemia, unspecified; E03.9 Hypothyroidism, unspecified; Z92.21 Personal history of antineoplastic chemotherapy; Z92.3 Personal history of irradiation
CPT/HCPCS: 36415; 36591; 71270; 74178; 83735; 85025; 99212; J1642; Q9967; 82040; 82247; 82310; 82374; 82435; 82565; 82947; 84075; 84132; 84155; 84295; 84450; 84460; 84520

== ENCOUNTER 2018-11-08 12:00 | Outpatient (RCR) | payer OTHER ==
[2018-09-03 17:21] LABS: PLATELET COUNT, AUTOMATED 70 K/uL (150-450)
[2018-10-07 15:57] VITALS: BP 147/85
--- NOTE | 2018-10-08 08:11 | RADIOLOGY IMAGING REPORT ---
FACILITY: [facility] - [place] PATIENT NAME: Didi Knowles : 1955 MR: [id number] V: [id number] EXAM DATE: ORDERING PHYSICIAN: VIKRAM MITCHELL TECHNOLOGIST: Location: [facility] [place] Patient: Didi Knowles : 1955 Visit/Account:[id number] Date of Sevice: 10/07/2018 CHEST HISTORY: Mass/bulge, left clavicle medially COMPARISON: None. TECHNIQUE: Grayscale ultrasound of the site of palpable concern, performed by a employee benefits manager. FINDINGS: MASS OR FLUID COLLECTIONS: None. SOFT TISSUES: Sonographically unremarkable. OTHER: Negative. IMPRESSION: No ultrasound evidence of a mass at the site of palpable concern near the medial left clavicle. No u ltrasound findings to account for the reported palpable abnormality. Report Dictated By: Pierce Marx at 10/08/2018 8:06 AM Report E-Signed By: Pierce Marx at 10/08/2018 8:07 AM WSN:[email or web address]
--- NOTE | 2018-10-08 10:16 | Oncology Note ---
I called patient this morning at 10:00 am to review the results from yesterday's US. US was normal and didn't show any abnormalities, in particular to the left medial chest wall at the palpable area of concern. The area isn't painful and is simply noticeable to the patient and this was her primary concern at our visit yesterday. She'll be following up in about 3-4 weeks to see her medical oncologist, Dr. Desai. We will re-evaluate the area at that time. She was instructed to let us know if this becomes enlarged or becomes painful. For now this seems to be quite benign based on US report. She verbalized understanding and agrees with this plan. Ashleigh Johansen APRN, LEATHER POLISHER-BC YVETTE MCFARLAND APRN,AUDRA Oct 08, 2018 10:16
--- NOTE | 2018-10-08 19:22 | ONCOLOGY FOLLOW UP NOTE ---
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 CHIEF COMPLAINT Patient is here for followup visit after coming by our office this afternoon to report a new lump/mass noted at her mid anterior chest below her left collarbone. She first noticed this a couple of days ago. She denies any pain associated with this and denies any decreased range of motion. INTERIM HISTORY Ms. Knowles is here today for add-on visit for evaluation of a new lump on her upper chest wall. She is in good spirits. She tells me that she has been generally feeling quite well since her last visit. She has some mild general fatigue, but reports that this is stable. She reports that her appetite has been somewhat low lately, but otherwise is stable. She has been trying to drink more fluids. She saw her PCP last week in [place]. Patient reports that she was told that she might be somewhat dehydrated and was instructed to increase fluids. She denies any abdominal pain at all. She denies any bowel or bladder changes. She denies any vaginal bleeding. No hematuria. She had a CT scan in June 2018 shortly after her last visit with us and also followed up with a bone marrow biopsy. Results for both exams were negative, and she's aware of these results. PAST MEDICAL HISTORY 1. 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 2. Hypertension. 3. Hypercholesterolemia. 4. Hypothyroidism. PAST SURGICAL HISTORY 1. As above. 2. Status post a surgical procedure on her hand. 3. Status post tonsillectomy. 4. Status post knee surgery last year. SOCIAL HISTORY Patient is a nonsmoker, and there is no history of illicit drug use or alcohol abuse. 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 FAMILY HISTORY Otherwise unremarkable. MEDICATIONS 1. Vitamin B12, 5000 mg sublingual daily. 2. Levothyroxine 88 mcg daily. 3. Losartan 100 mg p.o. q. day. 4. Magnesium oxide 400 mg one to two times per day. 5. Metformin 500 mg b.i.d. 6. Simvastatin 40 mg at bedtime. 7. Spironolactone 25 mg daily. ALLERGIES 1. CELEBREX which causes a rash. 2. PENICILLINS which cause hives. REVIEW OF SYSTEMS CONSTITUTIONAL: Patient denies any recent fevers, chills, or night sweats. She just had a pneumonia vaccine last Thursday via her PCP. HEENT: She denies any vision changes. She denies any epistaxis or mouth sores. No dysphagia or odynophagia. NECK: She denies any neck pain. She has full range of motion. LUNGS: She denies any shortness of breath. No cough, sputum production, hemoptysis, or pleuritic chest pain. CARDIOVASCULAR: She denies any syncope or presyncope. ABDOMEN: She denies any abdominal pain, nausea, vomiting, constipation, diarrhea, bright red blood per rectum, or melena. Appetite has been somewhat low recently. GENITOURINARY: She denies any dysuria, hematuria, or genitourinary discharge. OIL WELL PUMPER: She denies any vaginal bleeding ENDOCRINE: She denies any heat or cold intolerance. She has some general fatigue, but feels that her energy levels are stable. PSYCHIATRIC: She denies any severe depression, severe anxiety, suicidal or homicidal ideation. NEUROLOGIC: She denies any headaches or paresthesias. No focal weakness. MUSCULOSKELETAL: She denies any focal areas of pain. DERM: She denies any rash or severe bleeding. She recently noticed a lump to the anterior chest wall, below her left clavicle, which appears enlarged. There is no significant tenderness unless she presses firmly on it. The patient's partner encouraged her to come in and have this evaluated due to her cancer history. The remainder of a 12-point review of systems is performed today and is otherwise negative. PHYSICAL EXAMINATION VITAL SIGNS: Weight today 213.4 pounds. T 97.8, P 76, R 16, BP 147/85, oxygen saturation 90% on room air. GENERAL: In general, this is a pleasant 62-year-old obese woman who appears well hydrated, well nourished, and is in otherwise no acute distress. HEAD: Normocephalic, atraumatic. EYES: Sclerae anicteric. ENT, MOUTH: No mucositis. No suspicious lesions. Moist mucous membranes. NECK: Supple. No lymphadenopathy. No JVD. NEUROLOGIC: Patient is awake, alert, oriented times three. There are no obvious focal or sensorimotor deficits. PSYCHIATRIC: Mood and affect are appropriate and within normal limits today. LUNGS: Clear breath sounds to auscultation bilaterally. CARDIOVASCULAR: Regular rate and rhythm. No ectopy. GASTROINTESTINAL: Abdomen is soft, obese, nontender, and nondistended. Bowel sounds positive times four. EXTREMITIES: No edema. No clubbing or cyanosis. MUSCULOSKELETAL: Gait is steady. DERM: No rash. No signs of petechiae or purpura. Patient has an enlarged mass noted at the mid anterior chest wall. This isn't supraclavicular. The area is round and approximately 1 to 1.5 cm in length and 0.5 cm in diameter. This appears to be possibly a lipoma, though it is not particularly soft and is somewhat firm. There are no other suspicious lesions on cursory examination. LABORATORY No labs today. Last CBC on 09/03/18: WBC 4.1, ANC 2.8, hemoglobin 11.9, hematocrit 35.0, platelets 70,000. Magnesium level on 07/01/18: Minimally low, 1.5. D-dimer on 09/24/16: 2.4. PATHOLOGY Bone marrow biopsy and flow cytometry on 06/29/18: Bone marrow with no immunophenotypic evidence of lymphoma or leukemia. IMAGING CT chest, abdomen, and pelvis with and without contrast at [facility] [place] on 07/01/18: 1. Postsurgical changes from hysterectomy. No evidence of metastatic disease within chest or abdomen or pelvis. 2. Additional chronic findings as described. There is diverticulosis left- sided colon, although no CT evidence of acute diverticulitis. 3. Postsurgical changes from hysterectomy. 4. There is mild nodular thickening of the left adrenal gland that appears stable. 5. No aggressive-appearing bone lesions are seen. 6. Implanted right IJ port, distal tip in the superior vena cava. There is chronic elevation of the right hemidiaphragm. IMPRESSION AND PLAN Ms. Knowles is a pleasant 62-year-old woman with history of pancytopenia. She was having bruising secondary to her ongoing thrombocytopenia, and bone marrow biopsy was done and was unremarkable. This was done in June of last year. She has not had any recurrent episodes of bruising. She is off all treatment. She has had restaging CT scans, also done in June of last year. Results did not reveal any evidence of metastatic disease. She has a new unusual lump noted at her mid anterior chest wall, left of the sternum and a few inches below her clavicle. There isn't any associated pain unless deeply palpated, but this is quite concerning for her. She reports that she simply noticed it a couple of days ago. Her right internal jugular Port-A-Cath is functioning well. 1. 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 She has had a restaging CT scan, and results were negative as noted above. We will continue to monitor. 2. Pancytopenia: Bone marrow biopsy was done and was normal. No labs were done today, but we will check these again at her next visit. She is not having any unusual bruising or bleeding. 3. Imaging: I have ordered an ultrasound of the left anterior mass today, and this may certainly be a lipoma. We will notify her of any results. 4. She will return to clinic as scheduled and keep her followup appointment with her medical oncologist, Dr. Lange, scheduled for next month in October. PEMA
[2018-11-01 16:40] VITALS: BP 144/55
[2018-11-01 16:46] LABS: PLATELET COUNT, AUTOMATED 60 K/uL (150-450)
[2018-11-03 13:59] VITALS: BP 141/79
[~2018-11-08 12:00] MED LIST changes: +HEPARIN FLSH (PORT) 500 UN/5ML IVP PRN; -IOPAMIDOL 76% 50 ML INFUS BTL 100 ML ONE; +LIDOCAINE/SOD BICARB 8.4% SYR ID PRN; +NS(*) 0.9% 250 ML BAG 250 ML IVPB PRN; -NS(*) 0.9% 500 ML BAG 500 ML IV PRN
[2018-11-08 12:12] VITALS: BP 119/94
--- NOTE | 2018-11-16 23:15 | ONCOLOGY FOLLOW UP NOTE ---
EVENT DATE: November 03, 2018 REASON FOR FOLLOWUP 1. 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 2. Pancytopenia. CHIEF COMPLAINT Fatigue. INTERIM HISTORY Ms. Knowles returns to clinic for a followup visit today. She is accompanied by her loved one. She reports that things in general have been going pretty well since our last visit. She does have some ongoing fatigue as well as musculoskeletal aches and pains. These have not changed. She reports no fever. She has had some bruising, but no abnormal bleeding. Her appetite is good, and her weight has been stable. She reports no other lingering side effects from chemotherapy with the exception of fatigue. She is here to follow up on laboratory studies. REVIEW OF SYSTEMS Otherwise negative, and all systems reviewed. PAST MEDICAL HISTORY 1. 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 2. Hypertension. 3. Hypercholesterolemia. 4. Hypothyroidism. PAST SURGICAL HISTORY 1. As above. 2. Status post a surgical procedure on her hand. 3. Status post tonsillectomy. 4. Status post knee surgery last year. ALLERGIES 1. CELEBREX which causes a rash. 2. PENICILLINS which cause hives. SOCIAL HISTORY Patient is a nonsmoker, and there is no history of illicit drug use or alcohol abuse. 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 FAMILY HISTORY Otherwise unremarkable. VITAL SIGNS Temperature is 98.1, blood pressure 141/79, heart rate is 71, respirations 16, oxygen saturation 91% on room air. Weight is 97 kg. PHYSICAL EXAMINATION GENERAL: Patient is alert and oriented times three, no apparent distress, sitting in the exam room chair. She is interactive and quite pleasant. She is in good spirits. HEENT: Anicteric sclerae. NEUROLOGIC: Grossly nonfocal. Her gait is somewhat antalgic, but stable. EXTREMITIES: No edema, clubbing, or cyanosis. SKIN: Small bruises on forearms, but otherwise no concerning rash or lesion. LABORATORY STUDIES Reviewed per the [facility] record. ASSESSMENT AND PLAN 1. 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 The patient seems to be doing quite well clinically. We spent time today reviewing her oncology history. We discussed National Comprehensive Cancer Network (NCCN) guidelines for ongoing surveillance. She may have a change coming up in her insurance, but we discussed future plans for repeat CT imaging. We will work to better understand changes in insurance before she goes for this study. We reviewed her labs today as well. I will plan to see her back in clinic after followup imaging is complete, likely in the next few months. All questions answered today. 2. Pancytopenia. She has had some gradual improvement in her cytopenias, which have been attributed to adjuvant chemotherapy and radiation. Although her white blood cell count is now low normal, and her hemoglobin is also low normal, she remains with substantial thrombocytopenia. Her platelet count does seem to be improving somewhat, reaching as high as 70,000 recently. Importantly, she has had no worrisome bleeding, and we will continue to follow her counts closely and hope for further improvement. I spent a total of 30 minutes of time face to face with the patient today, and 25 minutes of this were spent in direct counseling and coordination of care. PEMA
== END 2018-12-02 ==
LOC: SPU 12:00
PROVIDERS: ATTEND Internal Medicine Medical Oncology
DX: Z85.42 Personal history of malignant neoplasm of other parts of uterus (principal); D61.818 Other pancytopenia; Z79.899 Other long term (current) drug therapy
CPT/HCPCS: 36415; 36591; 76604; 83735; 85025; 99212; J1642

== ENCOUNTER → 2019-01-04 | Outpatient (CLI) | payer OTHER ==
[~2019-01-04] MED LIST changes: -ALTEPLASE RECOMB 2 MG VIAL IVP PRN; -DEXTROSE 5%(*) 100 ML BAG 100 ML IVPB PRN; -HEPARIN FLSH (PORT) 500 UN/5ML IVP PRN; +IOPAMIDOL 76% 100 ML INFUS BTL 100 ML ONE; -LIDOCAINE/SOD BICARB 8.4% SYR ID PRN; -NS(*) 0.9% 100 ML BAG 100 ML IVPB PRN; -NS(*) 0.9% 250 ML BAG 250 ML IVPB PRN; -WATER FOR INJ,STERILE 20 ML IVP PRN
--- NOTE | 2019-01-04 13:51 | RADIOLOGY IMAGING REPORT ---
[facility] PATIENT NAME: Didi Knowles : 1955 MR: [id number] V: [id number] EXAM DATE: ORDERING PHYSICIAN: MONIKA BENTON TECHNOLOGIST: Location: [facility] - [place], [place] Patient: Didi Knowles : 1955 Visit/Account:[id number] Date of Sevice: 01/04/2019 CT CHEST ABDOMEN PELVIS W/CON HISTORY: Endometrial cancer ADDITIONAL HISTORY: None. TECHNIQUE: Following administration of IV contrast axial images acquired through the chest abdomen a nd pelvis during the portal venous phase. Coronal and sagittal reformatting was also performed.Dose Lowering Technique One of the following dose optimization techniques was utilized in the performance of this exam: Autom ated exposure control; adjustment of the mA and/or kV according to the patient's size; or use of an i terative reconstruction technique. Specific details can be referenced in the facility's radiology C T exam operational policy. CONTRAST: 75 mL Isovue-370 COMPARISON: July 01, 2018 FINDINGS: CHEST: Lungs/Pleura: There is a small amount of scarring in the lung bases. Mediastinum/lymph nodes: Negative. Heart/vessels: Implanted right IJ port with distal tip in superior vena cava Bones/soft tissues: There are no aggressive appearing bone lesions ABDOMEN AND PELVIS: Hepatobiliary: Negative. Spleen: Negative. Pancreas: Negative. Adrenals: Mild nodular thickening of the left adrenal gland appears stable Kidneys ureters and bladder : Negative. Genitalia: Hysterectomy GI: There is diverticulosis of the left-sided the colon although no CT evidence of acute diverticul itis Vessels/spaces/nodes: Negative. Bones/soft tissues: There is a tiny umbilical hernia containing fat. No aggressive appearing bone l esions are seen Additional findings: None pertinent. IMPRESSION: Postsurgical changes from a hysterectomy although no CT evidence of metastatic disease in the chest a bdomen or pelvis Colonic diverticulosis Additional chronic findings Report Dictated By: Brittany Medina MD at 01/04/2019 1:10 PM Report E-Signed By: Brittany Medina MD at 01/04/2019 1:45 PM WSN:[email or web address]
== END ==
LOC: CT 01:00
PROVIDERS: ATTEND Nurse Practitioner
DX: K57.30 Diverticulosis of large intestine without perforation or abscess without bleeding (principal); Z90.710 Acquired absence of both cervix and uterus
CPT/HCPCS: 71260; 74177; Q9967

== ENCOUNTER 2019-01-05 08:00 | Outpatient (RCR) | payer OTHER ==
[2018-12-15 15:30] VITALS: BP 137/72
[2018-12-15 15:39] LABS: PLATELET COUNT, AUTOMATED 73 K/uL (150-450)
[2018-12-15] MEDS: HEPARIN FLSH (PORT) 500 UN/5ML IVP PRN (16:51)
--- NOTE | 2018-12-16 19:01 | ONCOLOGY FOLLOW UP NOTE ---
EVENT DATE: December 15, 2018 CHIEF COMPLAINT Followup for endometrial carcinoma. HISTORY OF PRESENT ILLNESS Patient is a 63-year-old female who was seen today in followup. Overall, she is doing well, although has noted significantly more fatigue. 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 She complains of some intermittent lower abdominal pain as well as occasional explosive diarrhea. She has ongoing neuropathy, more in her feet than her hands with some sensory loss in her feet. She also had noted a small mass on her left clavicle. Her appetite is good, and her weight remains stable. ONCOLOGY HISTORY Patient was diagnosed with a stage IIIC1 endometrioid adenocarcinoma of the endometrium with squamous differentiation. She underwent TERESA/BSO and omentectomy on 07/21/17. She then completed six cycles of carboplatin and Taxol from August 2017 through December 2017. She began radiation with concurrent cisplatin on 01/19/18. She only received one cycle of cisplatin, and the remainder was held due to pancytopenia. She completed radiation on 02/19/18. MEDICAL HISTORY 1. Stage IIIC endometrioid adenocarcinoma of the endometrium with squamous differentiation, July 2017. 2. Hypertension. 3. Hyperlipidemia. 4. Hyperthyroidism. SURGICAL HISTORY 1. TERESA/BSO and omentectomy, 07/21/17. 2. Surgical procedure on her hand. 3. Tonsillectomy. 4. Knee surgery, 2018. FAMILY HISTORY Father of heart disease and complications from diabetes. She has a niece with stage I melanoma. Otherwise, there are no cancers or blood disorders in her family. SOCIAL HISTORY Patient recently her long-term partner, La. 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 She does not smoke. There is no history of illicit drug use or alcohol abuse. MEDICATIONS 1. B12 5000 mcg daily. 2. Levothyroxine 88 mcg daily. 3. Losartan 100 mg daily. 4. Magnesium oxide 400 mg daily. 5. Metformin 500 mg b.i.d. 6. Simvastatin 40 mg at bedtime. 7. Spironolactone 25 mg daily. ALLERGIES PENICILLINS and CELECOXIB. REVIEW OF SYSTEMS A 12-point review of systems is performed and is negative except as stated above. PHYSICAL EXAMINATION VITAL SIGNS: Weight 96.8 kg. BP 137/72, P 68, R 16, temp 98.6, O2 sat 94%. GENERAL: Patient is a well-developed, well-nourished, but fatigued-appearing female in no acute distress. HEAD: Normocephalic, atraumatic. EYES: Sclerae anicteric. MOUTH: Moist mucous membranes. No lesions. NECK: Supple. No palpable adenopathy. She does have a soft mass on her left clavicle, nonpainful. LUNGS: Clear bilaterally. CARDIOVASCULAR: Heart rate regular, 68 per minute. EXTREMITIES: No edema. NEUROLOGIC: Nonfocal. LABORATORIES CBC today reveals a WBC of 3.5, ANC of 2.2, hemoglobin 11.3, hematocrit 33.0, platelets 73,000. CMP is within normal limits except for an elevated BUN and creatinine of 25 and 1.5 respectively. IMPRESSION The patient is a 63-year-old female diagnosed with stage IIIC1 endometrioid adenocarcinoma of the endometrium with squamous differentiation. Underwent total abdominal hysterectomy, bilateral salpingo-oophorectomy, and omentectomy on 07/21/17. Completed six cycles of carboplatin and Taxol from August 2017 through December 2017. Underwent concurrent radiation with weekly cisplatin beginning on 01/19/18 but was only able to receive one treatment; the remainder of cisplatin was held due to pancytopenia. Completed radiation on 02/19/18. Ongoing pancytopenia after treatment but bone marrow biopsy was negative for any issues. PLAN 1. Endometrial carcinoma. Patient has some concerning symptoms of excessive fatigue as well as lower abdominal pain. Will schedule for CT of the chest, abdomen, and pelvis to further evaluate this. We reviewed NCCN guidelines, which state that imaging should be based on symptomatology and clinical concern for metastatic disease for patients with stage III -IV disease. Optional CT of the chest, abdomen, and pelvis could be done on an every six-month basis for the first year. 2. Left clavicle mass. Will obtain CT of the neck to further evaluate. 3. Pancytopenia. Ongoing, although very slowly improving. She does have leukopenia, although ANC has now improved to 2.2. She has continued thrombocytopenia, but has had no issues with excessive bruising or bleeding. Platelet count has increased from 60,000 to 73,000. We will continue to monitor. 4. Follow up with Dr. Lange on 01/05/19 for continued care, earlier if there is a problem. MTDD
[2019-01-04] MEDS: HEPARIN FLSH (PORT) 500 UN/5ML IVP PRN (10:23)
[2019-01-04 10:40] VITALS: BP 150/75
[2019-01-04 10:44] VITALS: BP 135/72
[~2019-01-05 08:00] MED LIST changes: +ALTEPLASE RECOMB 2 MG VIAL IVP PRN; +DEXTROSE 5%(*) 100 ML BAG 100 ML IVPB PRN; -IOPAMIDOL 76% 100 ML INFUS BTL 100 ML ONE; +LIDOCAINE/SOD BICARB 8.4% SYR ID PRN; +NS(*) 0.9% 100 ML BAG 100 ML IVPB PRN; +NS(*) 0.9% 250 ML BAG 250 ML IVPB PRN; +WATER FOR INJ,STERILE 20 ML IVP PRN
[2019-01-05 08:07] VITALS: BP 146/78
--- NOTE | 2019-01-05 16:31 | ONCOLOGY FOLLOW UP NOTE ---
EVENT DATE: January 05, 2019 REASON FOR FOLLOWUP 1. 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 2. Pancytopenia. INTERIM HISTORY Ms. Knowles returns to clinic for a followup visit today. She is accompanied by her loved ones. She reports that in general she has been feeling pretty good. She does endorse some ongoing, modest fatigue. She has had no fevers. She reports no shortness of breath, chest pain, or productive cough. She has had some abdominal discomfort on and off, but nothing consistent. She reports no abnormal bruising or bleeding. Her appetite is pretty good. Since our last visit, she and her partner got . They shared part of their wedding video with me today. REVIEW OF SYSTEMS Otherwise negative, and all systems were reviewed. PAST MEDICAL HISTORY 1. 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 2. Hypertension. 3. Hypercholesterolemia. 4. Hypothyroidism. PAST SURGICAL HISTORY 1. As above. 2. Status post a surgical procedure on her hand. 3. Status post tonsillectomy. 4. Status post knee surgery last year. ALLERGIES 1. CELEBREX which causes a rash. 2. PENICILLINS which cause hives. SOCIAL HISTORY Patient is a nonsmoker, and there is no history of illicit drug use or alcohol abuse. 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 FAMILY HISTORY Otherwise unremarkable. VITAL SIGNS Temperature is 98.9, blood pressure 146/78, heart rate of 74, respirations 18, oxygen saturation is 91% on room air. Weight is 96.8 kg. PHYSICAL EXAMINATION GENERAL: Patient is alert and oriented times three, no apparent distress, sitting in the exam room chair. She is in good spirits and interactive, pleasant. HEENT: Anicteric sclerae. NEUROLOGIC: No focal deficit. Gait is normal. SKIN: No concerning rash or lesion. EXTREMITIES: No edema, clubbing, or cyanosis. LABORATORY STUDIES Reviewed per the [employer] record. IMAGING Followup CT scan of chest, abdomen, and pelvis from January 04, 2019, reveals postsurgical changes from hysterectomy with no CT evidence of metastatic disease in the chest, abdomen, or pelvis. There is colonic diverticulosis. 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 I had a good visit with Gricelda and her loved ones today. Symptomatically, she seems to be doing quite well. We spent time today reviewing her laboratory trends over time, as well as her recent followup CT imaging that was performed to evaluate for some vague abdominal pain. As discussed, her CT scan is quite encouraging with no particular abnormalities and no concern for cancer recurrence. She was delighted to hear this. Also of mention, she had noted some fullness around the left clavicle, but there is no indication on the CT scan report of any abnormality here either. She was happy to hear this as well. We discussed our ongoing strategy for surveillance. I have recommended that she follow up in three months here with Rachel Morin, Nurse Practitioner, after repeat labs. I will plan to see her back in six months. We do not necessarily have plans for routine surveillance imaging, and we discussed the rationale behind this, as there is lack of data to support this. Gricelda had several additional questions for me today, and I believe I answered all of her questions to her satisfaction. PEMA
== END 2019-01-10 13:05 | disposition home or self-care (01) ==
LOC: ONC 08:00
PROVIDERS: ATTEND Internal Medicine Medical Oncology
DX: C54.1 Malignant neoplasm of endometrium (principal); R22.2 Localized swelling, mass and lump, trunk; D61.818 Other pancytopenia; R53.83 Other fatigue; R10.30 Lower abdominal pain, unspecified; E03.9 Hypothyroidism, unspecified; Z79.899 Other long term (current) drug therapy; K57.90 Diverticulosis of intestine, part unspecified, without perforation or abscess without bleeding
CPT/HCPCS: 85025; 96523; 99212; J1642; 82040; 82247; 82310; 82374; 82435; 82565; 82947; 84075; 84132; 84155; 84295; 84450; 84460; 84520

== ENCOUNTER → 2019-01-06 | Outpatient (CLI) | payer OTHER ==
[~2019-01-06] MED LIST changes: -ALTEPLASE RECOMB 2 MG VIAL IVP PRN; -DEXTROSE 5%(*) 100 ML BAG 100 ML IVPB PRN; -LIDOCAINE/SOD BICARB 8.4% SYR ID PRN; -NS(*) 0.9% 100 ML BAG 100 ML IVPB PRN; -NS(*) 0.9% 250 ML BAG 250 ML IVPB PRN; -WATER FOR INJ,STERILE 20 ML IVP PRN
[2019-01-06 11:35] VITALS: BP 154/64
[2019-01-06 11:51] LABS: PLATELET COUNT, AUTOMATED 59 K/uL (150-450)
== END ==
LOC: SPU 09:19
PROVIDERS: ATTEND Internal Medicine
DX: R79.0 Abnormal level of blood mineral (principal); D61.810 Antineoplastic chemotherapy induced pancytopenia; T45.1X5A Adverse effect of antineoplastic and immunosuppressive drugs, initial encounter; E11.9 Type 2 diabetes mellitus without complications; E03.9 Hypothyroidism, unspecified; G62.9 Polyneuropathy, unspecified
CPT/HCPCS: 36415; 82040; 82247; 82310; 82374; 82435; 82565; 82607; 82947; 83036; 83735; 84075; 84132; 84155; 84295; 84443; 84450; 84460; 84520; 85025